=== PATIENT | female | born 1930 | race Caucasian/White ===

== ENCOUNTER 2016-12-01 06:57 | Day surgery (SDC) | payer MEDICARE, OTHER ==
[~2016-12-01] VITALS: Ht 160 cm; Wt 89.5 kg
[2016-12-01] VITALS (9 sets, daily range): BP systolic 121–170; BP diastolic 46–72; PULSE 63–77; RESP 14–17; O2SAT 93–97
[~2016-12-01 06:57] MED LIST: ACET325T51 PO; AMLO5TAB2 PO; BETA1TAB19 PO; CYAN500T53 SL; CeFAZolin 2 Gm/50 mL D5W IV Premix IV ONE; FERR325T6 PO; FOLI0.4T2 PO; LACT1CAP73 PO; LAMO200T2 PO; LEVO100T6 PO; LOPE2CAP PO; LOSA25TA21 PO; MAGN400O4 PO; METF500T4 PO; Mitomycin Inj 40 MG in Syringe 1 EACH IRRIGATION ONE; OMEP20TA86 PO; ONDA4TAB6 PO; PHEN-777 PO; PRED-508 PO; PYRI60TA PO; QUET25TA73 PO; Vancomycin Inj 1,000 MG in IV Premix 1 EACH IV ONE; cefTRIAXone 2,000 mg/D5W 50 mL IV Minibag Plus IV ONE
[2016-12-01] MEDS ORDERED: EPHEDrine/NS 5 mg/mL 5 mL Syringe ONE (06:58)
[2016-12-01] MEDS ORDERED: fentaNYL-PF 50 mCg/mL 2 mL Inj ONE (06:58)
[2016-12-01] MEDS ORDERED: Propofol 10,000 mCg/mL 20 mL Inj ONE (06:58)
[2016-12-01] MEDS: Lactated Ringer's 1,000 ML IV SCH ×2 (08:23→09:08)
[2016-12-01] MEDS ORDERED: Lactated Ringer's 1,000 ML IV SCH (09:54)
[2016-12-01] MEDS ORDERED: Lactated Ringer's 500 ML IV PRN (09:54)
--- NOTE | 2016-12-01 09:54 | PCM.HPANE ---
Patient Data Surgeon Admitting Provider: Attending Provider:Jelani Gu MD Primary Care Physician:Rosemary Keys MD Other Provider:Debi Parkingham Anesthesia Reason for Visit Bladder Tumor, Bladder Lesion Ht/WT & BMI Height (Feet): 5 Height (Inches): 2 Weight (Kilograms): 83.46 Body Mass Index 33.00 Allergies Coded Allergies: Penicillins (Verified Allergy, Severe, RASH,ITCH, 08/23/16) lisinopril (Verified Adverse Reaction, Severe, COUGH, 08/23/16) Past Anesthesia History Anesthesia History: Denies:: Abnormal Airway, Anesthesia Reactions, Difficult Intubation, Fam Anesthesia Reaction, Fam Malignant Hypertherm, Malignant Hyperthermia Diabetes History Hx Diabetes?: Yes Type of Diabetes: Type II Glycemic Control: Oral Medication MRSA MRSA: No Medications Blood Thinner: Aspirin Hypertension Medication: Yes Home Meds Incl Beta Davonte: No Active Scripts Amlodipine 5 Mg Trdrfg11 Mg PO DAILY #30 TABLET Prov:Esteban East MD 08/31/16 Prednisone (Deltasone)20 Mg Kmcuvk45 Mg PO DAILY #4 TABLET Prov:Esteban East MD 08/31/16 Losartan Potassium 25 Mg Xfwocq01 Mg PO DAILY #30 TABLET Prov:Esteban East MD 08/31/16 Reported Medications Phenazopyridine 200 Mg Ctsgou842 Mg PO TID PRN For Pain Ref 0 08/24/16 Ondansetron (Zofran)4 Mg Tablet4 Mg PO Q4H PRN For Nausea 08/24/16 Vit A/Vit C/Vit E/Zinc/Copper (Preservision Areds Tablet)1 Each Tablet1 Each PO 08/24/16 Lactobacillus Combo No.11 (Probiotic)1 Each Cap.sprink1 Each PO DAILY 08/20/16 Metformin 500 Mg Kmwqlu030 Mg PO TID Ref 0 05/05/16 Omeprazole 20 Mg Tablet.dr20 Mg PO DAILY 05/02/16 Magnesium Hydroxide (Milk of Magnesia)400 Mg/5 Ml Oral.gwuv530 Mg PO PRN 05/02/16 Cyanocobalamin (Vitamin B-12) (Vitamin B-12)500 Mcg Tab.owov195 Mcg SL DAILY 02/08/16 Loperamide 2 Mg Capsule2-4 Mg PO Q4H PRN For Diarrhea or Loose Stool 02/08/16 Acetaminophen 325 Mg Xdmoun735 Mg PO Q4H PRN For Pain Ref 0 02/08/16 Levothyroxine 100 Mcg Erzkqt952 Mcg PO DAILY For Thyroid Replacement Ref 0 02/08/16 Folic Acid 0.4 Mg Tablet0.4 Mg PO DAILY 02/08/16 Ferrous Sulfate 325 Mg Tablet.dr325 Mg PO BID 30 Days Ref 0 02/08/16 Pyridostigmine [place] 60 Mg Vvymvb82 Mg PO QIDWA 30 Days Ref 0 01/13/15 Lamotrigine 200 Mg Iteyrb810 Mg PO BID 30 Days Ref 0 01/13/15 Quetiapine Fumarate 25 Mg Nxkkhg38.5 Mg PO HS #30 TABLET Ref 0 08/15/14 Discontinued Reported Medications Nitrofurantoin Monohyd/M-Cryst (MacroBid)100 Mg Rzwqesn585 Mg PO BID Ref 0 08/24/16 Benzonatate 100 Mg Bgbdkwd207 Mg PO TID PRN For Cough 02/08/16 Discontinued Scripts Ciprofloxacin (Cipro)500 Mg Orxhsq012 Mg PO BID #8 TABLET Ref 0 Prov:Esteban East MD 08/31/16 History History of ENT Problems?: Yes HEENT History: Positive for:: Cataracts Glaucoma (hx of surgery for) Sinus Problem Denies:: Abnormal Airway Difficult Intubation Dysphagia Hearing Problem Hx of Heart Problems?: No Cardiovascular History: Positive for:: Hypertension Rheumatic Fever (HX SCARLET FEVER) Denies:: AICD Atrial Fibrillation Cardiac Surgery Chest Pain Congestive Heart Failure Edema Heart Murmur Irregular Heartbeat Pacemaker Thrombophlebitis Valvular Heart Disease Hx of Respiratory Problem?: No Respiratory History: Positive for:: Pneumonia Denies:: Asthma COPD Chest Surgery Cough Dyspnea Emphysema Hemoptysis Tuberculosis Use of C-PAP Machine Hx Neurologic Problems?: Yes Neurological History: Positive for:: Dizziness Headaches Seizures (stable seizure disorder) Denies:: Alzheimer's Disease (reports of delirium and sun downing) CVA Dementia Multiple Sclerosis Parkinson's Disease Hx of GI Problems?: Yes Gastrointestinal History: Positive for:: Diverticulitis (perforated, with sigmoid colectomy) Heartburn Hiatal Hernia Denies:: Cirrhosis Gastroesphageal Reflux Gastrointestinal Bleeding Hepatitis Rectal Bleeding Hx of Problems?: Yes Genitourinary History: Positive for:: Kidney Stones Denies:: HX of Hemodialysis Urinary Tract Infection (hx of not current) HX of Peritoneal Dialysis: No Other Pertinent History: bladder tumor current admission problem- past hx of surgery Female Hx: Denies:: Currently Endometriosis Pelvic Inflammatory Problems with Breasts? Skin History: Denies:: History Skin Disorders? Pressure Ulcers Hx Musculoskeletal Problems?: Yes Musculoskeletal History: Positive for:: Back Injury Myasthenia Gravis Osteoarthritis Denies:: Joint Replacement Musculoskeletal Trauma Hx of Psycho/Social Problems?: Yes Psycho Social History: Positive for:: Anxiety Hx Depression Denies:: Bipolar Disorder Suicide Attempt Hx Surgeries?: No (cysto, turbt, appe, cataracts, sigmoid resection, [place], thyroidectomy) Hx Any Other Health Problems?: Yes Other History: Positive for:: Cancer (bladder, thyroid) Hospitalization Thyroid Disease (thyroidectomy) Denies:: Endocrine Disease History Blood Transfusions: Denies:: Blood Transfuse Reaction Blood Transfusions Hx Diabetes: Yes Hx Alcohol Use: NoHx Substance Use: No Smoking Status: Former Smoker Have You Smoked inLast 12 mo: No Stop/Bang S-Snoring: Do You Snore Loudly: No T-Tired: feel tired, fatigued: Yes O-Obsered: Observed not breath: No P-Blood Pressure: treated: Yes B- Body Mass Index > 35 kg/m2: No A- Age over 50: Yes N- Neck Large Circumference: No G- Gender Male: No NATALEE Total Score: 3 Risk Assessment Category Category 1A: Patient has history of documented sleep apnea, and HAS NOT received any narcotic, sedative or anesthesia administration during this stay. Category 1B: Patient has history of documented sleep apnea, and HAS received any narcotic , sedative or anesthesia administration during this stay Category 2: Patient has SUSPECTED Obstructive Sleep Apnea, and HAS received any narcotic , sedative or anesthesia administration during this stay. Category 3: Patient has SUSPECTED Obstructive Sleep Apnea and HAS NOT received narcotic, sedative or anesthesia administration during this stay. Category 4: Outpatient in Procedural Areas with known sleep apnea or who screen positive for High Risk via the STOP/BANG questionnaire. Exam Exam General Appearance: Alert, Oriented X3, Cooperative, No Acute Distress HEENT/AIRWAY: MP 2, Neck Movement (FROM), Mouth Opening (3 FBMO) Lungs: Clear to Auscultation, Diminished Heart: Exam Unremarkable, Regular Rate/Rhythm, No Murmurs/Rubs/Gallops Additional Information uses wheelchair. weak from Myasthenia Gravis. H/O alzheimers dz. Plan Impression Patient chart reviewed, patient interviewed and anesthestic plan with risks, benefits, and alternatives discussed, and informed consent obtained. NPO Status: 05/04 2230 ASA Physical Status: ASA3 Severe Disease Anesthetic Plan: SAB (risks of SAB including bleeding, infection, permanent nerve damage, permanent motor weakness discussed. AQA. Consent signed.) Bene/Risks/Altern/Consents: Yes Santy Castañeda MD Dec 01, 2016 07:32
[2016-12-01] MEDS ORDERED: fentaNYL-PF 50 mCg/mL 2 mL Inj IVPUSH PRN (09:55)
[2016-12-01] MEDS ORDERED: Phenylephrine 10,000 mCg/mL Inj IVPUSH PRN (09:55)
[2016-12-01] MEDS ORDERED: Ondansetron 2 mg/mL 2 mL Inj IVPUSH PRN (09:55)
--- NOTE | 2016-12-01 10:42 | PCM.SURGPO ---
Immediate Operative Note Date of Surgery: Dec 01, 2016 Pre Operative Diagnosis Bladder tumor, bladder lesion Post Operative Diagnosis Bladder tumor, bladder lesion Procedure Cystoscopy, transurethral resection of bladder tumor (0.5-2cm), and bladder biopsy Surgeon and Soldering Inspector Surgeon: Jelani Gu MD Assistants: None Findings Cystoscopy revealed an approx. 0.5-1cm papillary bladder tumor on R lateral wall and an edematous and minimally erythematous bladder lesion on R superolateral wall. Bladder tumor and bladder lesion were resected using bipolar loop electrocautery. Complications There were no periprocedural complications identified. Surgical Specimen Removed: Yes Specimen sent to Pathology: Yes Surgical Specimen description: R lateral wall bladder tumor, R superolateral wall bladder lesion Anesthetic Administered: SAB Grafts, Implants: Other (18F Reed catheter to straight drainage) Output, Estimated Blood Loss: <5 Blood Admin during surgery: No Additional information Patient to be discharged home when stable, to return to see me in 1.5-2 weeks for post-op visit and trial of void. Jelani Gu MD Dec 01, 2016 10:42
--- NOTE | 2016-12-01 10:56 | PCM.DISURG ---
Surgical Discharge Instruction Date of Service Dec 01, 2016 Dates of Hospitalization Date of Hospital Admission Dec 01, 2016 Providers Admitting Physician: Jelani Gu MD Primary Care Physician: Rosemary Keys MD Attending Physician: Jelani Gu MD Discharge Diagnosis Discharge Diagnosis Bladder tumor, bladder lesion Post Operative diagnosis Bladder tumor, bladder lesion Diet Discharge Diet: No restrictions, Other (Drink at least 8-12 8oz. glasses (2-3 liters) of fluids per day as long as there is blood in the urine) Activity Discharge Activity-General: No driving while taking narcotic, Other (No strenuous exercise/activity or moderate or heavy lifting (> 10 lbs.) for 1 week) Dressing and Incisional Care Hygiene: May shower Follow Up Plan Follow-up Provider (F9): Jelani Gu MD Follow-up appointment: Weeks (1.5-2 weeks for post-op visit and trial of void ( early-mid AM appt.)) Call your provider for: Fever, Chills, Vomiting, Other (Pain uncontrolled by pain medications) Jelani Gu MD Dec 01, 2016 10:56
[2016-12-01] MEDS ORDERED: HYDROcodone-APAP 5-325 mg Tablet PO PRN (11:00)
--- NOTE | 2016-12-01 11:08 | PCM.ANEP1 ---
Post Anesthesia Phase 1 PACU Phase 1 Assessment Date of Service: Dec 01, 2016 Vital Signs Vital Signs Date Time Temp Pulse Resp B/P Pulse Ox O2 Delivery O2 Flow Rate FiO2 12/01/16 10:35 64 15 125/49 95 12/01/16 10:30 65 15 121/46 96 12/01/16 10:25 64 16 121/49 95 Room Air 12/01/16 10:20 36.4 63 14 122/50 95 Room Air 12/01/16 08:37 36.6 68 16 153/52 96 Room Air Anesthetic Administered: GA Level of Alertness: Awake, talking EMERSON's with Equal Strength: Yes Pain: No Nausea or Vomiting: No Oxygen Delivery: Simple Mask Lungs: Clear to Auscultation, Diminished Dermatome Level: T12 (Symphysis Pubis) Santy Castañeda MD Dec 01, 2016 11:08
--- NOTE | 2016-12-01 11:09 | PCM.ANEP2 ---
Post Anesthesia Evaluation ASA/CMS Post Anesthesia VS in Patient's Normal Range?: Yes Resp Stable; Airway Patent?: Yes CV Function & Hydration Stable: Yes Mental Status Recovered?: Yes Pain control Satisfactory?: Yes N/V Control Satisfactory?: Yes Santy Castañeda MD Dec 01, 2016 11:08
--- NOTE | 2016-12-02 14:52 | OP ---
[address] [address] OPERATIVE REPORT PATIENT: CHRISSY LANG : 1930 MR#: [id number] ADMIT: 12/01/2016 JOB ID: [id number] DATE OF SURGERY: 12/01/2016 PREOPERATIVE DIAGNOSIS(ES): Bladder tumor, bladder lesion. POSTOPERATIVE DIAGNOSIS(ES): Bladder tumor, bladder lesion. PROCEDURE: Cystoscopy, transurethral resection of bladder tumor (0.5-2 cm), and bladder biopsy. SURGEON: Jelani Gu M.D. HOSE TESTER: None. ANESTHESIA: Spinal anesthesia. ESTIMATED BLOOD LOSS: Less than 5 mL. SPECIMENS: Right lateral wall bladder tumor, right superolateral wall bladder lesion. DRAINS: An 18-Greek Reed catheter to straight drainage. COMPLICATIONS: None. CONDITION: Stable. FINDINGS: Cystoscopy revealed an approximately 0.5-1 cm papillary bladder tumor on the right lateral wall and an edematous and minimally erythematous bladder lesion on the right superolateral wall. Bladder tumor and bladder lesion were resected using bipolar loop electrocautery. INDICATIONS: The patient is an 86-year-old female with history of bladder cancer found on office cystoscopy to have bladder tumor and bladder lesion. The patient now presents for cystoscopy, transurethral resection of bladder tumor, bladder biopsy, and Mitomycin intravesical instillation. PROCEDURE: The patient was brought to the operating room and placed supine on the operating room table. The patient was given ceftriaxone and vancomycin IV antibiotics. Sequential compression device boots were placed. Spinal anesthesia was administered. The patient was brought down into the dorsal lithotomy position. The patient was prepped and draped in a standard surgical fashion. A 26-Greek continuous flow resectoscope was placed into the urethra without difficulty. Cystoscopy revealed normal urethra, bilateral ureteral orifices in normal position, mildly trabeculated bladder, no bladder calculi, an approximately 0.5-1 cm papillary bladder tumor on the right lateral wall, and an edematous and minimally erythematous bladder lesion on the right superolateral wall. The bladder tumor and bladder lesion were resected in their entirety using Thunderbeat bipolar loop electrocautery and sent to pathology for permanent specimen. The base of the bladder tumor resected area and bladder biopsied area including normal surrounding bladder mucosa were fulgurated using bipolar loop electrocautery. Excellent hemostasis was achieved. Bilateral ureteral orifices were seen to be intact and well-preserved at the end of the case. The continuous-flow resectoscope was removed from the patient. An 18-Greek Reed catheter was placed through the urethra and into the bladder without difficulty. Reed catheter balloon was inflated with 10 mL sterile water. Reed catheter was placed to straight drainage. Skin was cleaned and dried. The patient was placed in the supine position. The patient was transferred to the recovery room in stable condition. The patient tolerated the procedure well. Plan is for the patient to be discharged home when stable and to return to see me in the office in 1-1/2 to 2 weeks for postoperative visit and trial of void. CHUY
--- NOTE | 2016-12-06 10:46 | PATH ---
SURGICAL PATHOLOGY Attending Physician:Jelani Gu MD CASE STATUS: Signed Out PATIENT NAME: CHRISSY LANG PID: [id number] : 1930 DATE COLLECTED:12/01/2016 17:23 SPECIMEN: 1: Bladder, Biopsy 2: Bladder, Biopsy CLINICAL HISTORY: BLADDER LESION, BLADDER TUMOR 1). RIGHT LATERAL WALL BLADDER TUMOR 2). RIGHT SUPERIOR LATERAL WALL BLADDER LESION FINAL DIAGNOSIS: 1. Right Lateral Bladder Wall Tumor, Biopsy: Low-grade transitional cell carcinoma. Tumor does not invade the lamina propria or muscularis propria. 2. Right Superior Lateral Wall, Bladder, Biopsy: Mild chronic cystitis. Submucosal benign adipose tissue. No evidence of malignancy or dysplasia. ICD10 C67 NOTE: Dr. Tracy has reviewed the case and concurs with the diagnosis. GROSS DESCRIPTION: The specimen is received in two formalin filled containers labeled with the patient's name. 1). The specimen is sublabeled "right lateral wall bladder tumor" and consists of a 0.4 x 0.3 x 0.3 CM pink-burks portion of tissue. The specimen is entirely submitted in cassette 1A. 2). The specimen is sublabeled "right superior lateral wall bladder lesion" and consists of a 0.4 x 0.3 x 0.3 CM portion of tissue which is entirely submitted in cassette 2A. 12/01/2016 [facility] ICD-9 CODES: CPT CODES: 1: 48332 2: 88287 Electronically Signed Out Sandeep Ramires MD [facility] [address], [place] [address] Technical component performed at [facility], [facility] [address], [place], [address]
== END 2016-12-01 23:59 | disposition home or self-care (01) ==
LOC: SAS 06:57
PROVIDERS: ATTEND Urology
DX: C67.2 Malignant neoplasm of lateral wall of bladder (principal); N30.20 Other chronic cystitis without hematuria; R39.15 Urgency of urination; R35.1 Nocturia; E11.9 Type 2 diabetes mellitus without complications; E78.5 Hyperlipidemia, unspecified; I10 Essential (primary) hypertension; E03.9 Hypothyroidism, unspecified; G40.109 Localization-related (focal) (partial) symptomatic epilepsy and epileptic syndromes with simple partial seizures, not intractable, without status epilepticus; E66.9 Obesity, unspecified; Z87.891 Personal history of nicotine dependence; Z87.440 Personal history of urinary (tract) infections; Z79.84 Long term (current) use of oral hypoglycemic drugs; Z79.52 Long term (current) use of systemic steroids
CPT/HCPCS: 52234; 88305; J0696; J3010; J3370; J7120

== ENCOUNTER 2016-12-03 16:23 | Emergency (ER) | payer MEDICARE, OTHER ==
[~2016-12-03] VITALS: Ht 160 cm; Wt 88.6 kg
[~2016-12-03 16:23] MED LIST changes: -CeFAZolin 2 Gm/50 mL D5W IV Premix IV ONE; -Mitomycin Inj 40 MG in Syringe 1 EACH IRRIGATION ONE; -Vancomycin Inj 1,000 MG in IV Premix 1 EACH IV ONE; -cefTRIAXone 2,000 mg/D5W 50 mL IV Minibag Plus IV ONE
[2016-12-03 16:30] VITALS: BP 131/64; PULSE 77; RESP 16; O2SAT 97
--- NOTE | 2016-12-03 16:49 | ED.REPORT ---
HPI-General Illness Date of Service Dec 03, 2016 ED Provider: Marcell Newman MD An 86 year old female with a history of hypertension, diabetes, myasthenia gravis, bladder cancer, and Sterling's disease presents to the ED complaining of a nonfunctioning Reed. Urine procedure for bladder cancer 2 days ago and had a Reed placed. That Reed became nonfunctional and was flushed yesterday. It became nonfunctional again. Shortly before presentation she was seen at the urgent care where they placed a new Reed however they were concerned it did not seem to be producing enough. She is referred to the emergency department for labs and further evaluation. She has no complaints of pain, fever, difficulty breathing, vomiting. She does not feel that her bladder is distended. Nursing Notes Nursing Notes Reviewed: Yes Allergies: Coded Allergies: Penicillins (Verified Allergy, Severe, RASH,ITCH, 12/03/16) lisinopril (Verified Adverse Reaction, Severe, COUGH, 12/03/16) Scheduled Amlodipine (Amlodipine) 5 Mg Tablet 10 MG PO DAILY Cyanocobalamin (Vitamin B-12) (Vitamin B-12) 500 Mcg Tab.subl 500 MCG SL DAILY Ferrous Sulfate (Ferrous Sulfate) 325 Mg Tablet.dr 325 MG PO BID Folic Acid (Folic Acid) 0.4 Mg Tablet 0.4 MG PO DAILY Lactobacillus Combo No.11 (Probiotic) 1 Each Cap.sprink 1 EACH PO DAILY Lamotrigine (Lamotrigine) 200 Mg Tablet 200 MG PO BID Levothyroxine (Levothyroxine) 100 Mcg Tablet 100 MCG PO DAILY Losartan Potassium (Losartan Potassium) 25 Mg Tablet 50 MG PO DAILY Magnesium Hydroxide (Milk of Magnesia) 400 Mg/5 Ml Oral.susp 400 MG PO PRN Metformin (Metformin) 500 Mg Tablet 500 MG PO TID Omeprazole (Omeprazole) 20 Mg Tablet.dr 20 MG PO DAILY Prednisone (Deltasone) 20 Mg Tablet 20 MG PO DAILY Pyridostigmine [place] (Pyridostigmine [place]) 60 Mg Tablet 60 MG PO QIDWA Quetiapine Fumarate (Quetiapine Fumarate) 25 Mg Tablet 12.5 MG PO HS Scheduled PRN Acetaminophen (Acetaminophen) 325 Mg Tablet 650 MG PO Q4H PRN PRN For Pain Loperamide (Loperamide) 2 Mg Capsule 2-4 MG PO Q4H PRN PRN For Diarrhea or Loose Stool Ondansetron (Zofran) 4 Mg Tablet 4 MG PO Q4H PRN PRN For Nausea Phenazopyridine (Phenazopyridine) 200 Mg Tablet 200 MG PO TID PRN PRN For Pain Miscellaneous Medications Vit A/Vit C/Vit E/Zinc/Copper (Preservision Areds Tablet) 1 Each Tablet 1 EACH PO General Time Seen by MD: 16:47 Chief Complaint Other (Reed catheter check) Past Medical History Past Medical History 1. bladder cancer s/p tumor removal 2. Morbid obesity 3. History palpitations 4. Restless legs syndrome 5. Myasthenia gravis 6. Diverticulitis with perforation 7. Macular degeneration 8. 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 Diabetes mellitus 12. GERD 13. Hypertension 14. Thyroid disease Past Surgical History 1. Cystoscopy, with transurethral resection of bladder tumors (greater than 5 cm) and Mitomycin intravesical instillation 2. thyroidectomy 3. sigmoid resection due to diverticulitis 4. Appendectomy Review of Systems General: Denies fever, chills, malaise. HEENT: Denies congestion, headache, sore throat. Respiratory: Denies dyspnea, cough, shortness of breath, wheezing. Cardiovascular: Denies chest pain, palpitations. Gastrointestinal: Denies vomiting, abdominal pain. Admits diarrhea Otherwise as noted in HPI. Physical Exam General: Well appearing, well developed, well nourished, no acute distress. Head: Atraumatic, normocephalic. Eyes: No scleral icterus or injection. No discharge. Vision grossly intact. ENT: Voice clear, hearing grossly intact. Respiratory: Regular rate and rhythm. Breath sounds present, clear to auscultation and equal bilaterally. No respiratory distress. No increased work of breathing, speaks in complete sentences. Cardiovascular: Regular rate and rhythm, without murmur, gallop or rub. No pedal edema. Gastrointestinal: Obese abdomen non-tender without guarding or rebound. No masses detected. No distended bladder palpated. Bowel sounds normoactive. : Reed bag has approximately 100 mL of straw-colored urine in it. Skin: Warm and dry. Neurological: Grossly nonfocal. Psychological: Alert and oriented. Speech appropriate, linear and logical. Behavior appropriate. Vital Signs Vital Signs Date Time Temp Pulse Resp B/P Pulse Ox O2 Delivery O2 Flow Rate FiO2 4/1/17 18:49 80 16 147/50 96 Room Air 12/03/16 18:48 80 16 147/50 96 Room Air 12/03/16 16:30 36.4 77 16 131/64 97 Room Air Initial VS: Reviewed, Vital signs normal Interpretation & Diagnostics Lab Results Interpretation Result Diagram: 12/03/16 1705 12/03/16 1705 Test 12/03/16 16:40 12/03/16 17:05 Urine Color Yellow (YELLOW) Urine Appearance Clear (CLEAR,HAZY) Urine pH 5.5 (5.0-8.0) Urine Specific [place] 1.030 (1.003-1.035) Urine Protein 100mg/dL (NEG,TRACE) Urine Glucose (UA) Negativemg/dL (NEGATIVE) Urine Ketones Negativemg/dL (NEGATIVE) Urine Occult Blood Large (NEGATIVE) Urine Nitrite Negative (NEGATIVE) Urine Bilirubin Negative (NEGATIVE) Urine Urobilinogen Normalmg/dL (NORMAL) Urine Leukocyte Esterase Trace (NEGATIVE) Urine RBC 11-50/hpf (0-2) Urine WBC 0-5/hpf (0-5) Urine Epithelial Cells None/hpf (NONE-MOD) Urine Crystals None seen (NONE SEEN) Urine Bacteria Moderate/hpf (NONE-FEW) Urine Hyaline Casts None/lpf (NONE) Urine Granular Casts None seen (NONE SEEN) Urine Waxy Casts None seen (NONE SEEN) Urine Red Blood Cell Casts None seen (NONE SEEN) Urine White Blood Cell Casts None seen (NONE SEEN) Urine Mucus None seen (None Seen) Urine Trichomonas None seen (NONE SEEN) Urine Yeast None (NONE SEEN) Urinalysis Comment None Urine Culture Reflexed Indicated Hold Urine Received (Received) White Blood Count 12.8th/mm3 (3.8-10.1) Red Blood Count 3.06mil/mm3 (3.90-5.20) Hemoglobin 9.4g/dL (12.0-15.6) Hematocrit 30.7% (35.0-46.0) Mean Corpuscular Volume 100.3fL (81-100) Mean Corpuscular Hemoglobin 30.7pg (27.0-35.0) Mean Corpuscular Hemoglobin Concent 30.6% (32.0-37.0) Red Cell Distribution Width 14.5% (12.3-15.4) Platelet Count 324bil/L (150-400) Neutrophils (%) (Auto) 88.7% (40-74) Lymphocytes (%) (Auto) 5.8% (14-46) Monocytes (%) (Auto) 3.7% (4-12) Eosinophils (%) (Auto) 0% (0-5) Basophils (%) (Auto) 0.2% (0-3) Sodium Level 142mEq/L (134-144) Potassium Level 5.7mEq/L (3.5-5.2) Chloride Level 103mEq/L (97-108) Carbon Dioxide Level 22mmol/L (18-29) Blood Urea Nitrogen 18mg/dL (8-27) Creatinine 1.25mg/dL (0.57-1.00) Estimat Glomerular Filtration Rate 58mL/min (>59) Glucose Level 168mg/dL (60-99) Calcium Level 9.3mg/dL (8.5-10.1) Hold Hoffman Top Tube Received (Received) Re-Eval/Medical Decision Med Decision/Clinical Course 86-year-old woman seen for concern about a nonfunctioning Reed catheter. In the department her Reed appears to be functioning properly. CMP reveals mild hyperkalemia at 5.7. Her last measurement was 2 weeks ago at 5.2. This is not thought to be clinically relevant. Creatinine is 1.25, BUN is 18 and her estimated GFR is 58, indicating sufficient renal function. Glucose is 168 CBC reveals slight anemia and slight leukocytosis at 12.8 with a left shift. This is thought to be secondary to recent surgery. Urinalysis reveals blood and trace leukocyte esterase as well as moderate bacteria. This appears consistent with recent surgery rather than acute UTI. Discharge & Departure Primary Impression: Reed catheter in place Additional Impression: Problem with Reed catheter Disposition: Home Discharge Condition All VS Reviewed: Yes Condition: Stable Additional Instructions: Evaluation of a Reed catheter in the emergency department. It appears that the Reed that was placed at the urgent care is functioning as intended. Blood work is reassuring that your kidneys are functioning fairly well. We do note that you have a modestly elevated white blood cell count. This could be caused by infection, but you have no pain or fever. There is no indication of infection in your urine. We think this elevated white count is most likely due to your recent surgery. I believe you are stable and safe to be discharged to home. Follow-up with your care team as planned. Return to the emergency department for any new or worsening symptoms including increasing pain, urinary retention, fever, confusion. Referrals: Rosemary Keys MD EDSupervising Provider for APC: Marcell Newman MD Attending Statement I saw this patient in conjunction with Javier Vilchis PA-C. He has been sent for culture though the patient is without UTI symptoms or fever and urinalysis findings likely reflect expected changes in setting of indwelling Reed catheter. The catheter is now draining well and there is no evidence of significant kidney injury. Patient to drink lots of fluids and follow closely with her primary care physician/urologist. Follow precautions were reviewed in detail prior to discharge. copies to: Rosemary Keys MD, Beck O MD Dec 03, 2016 16:49 KALIE RUIZ Dec 03, 2016 17:07 Javier Vilchis PA-C Dec 03, 2016 18:19
[2016-12-03 17:24] LABS: BASOPHILS % (AUTO) 0.2 % (0-3); EOSINOPHILS % (AUTO) 0 % (0-5); MONOCYTES % (AUTO) 3.7 % (4-12); Mean Corpuscular Hemoglobin 30.7 pg (27.0-35.0); Mean Corpuscular Volume 100.3 fL (81-100); NEUTROPHILS % (AUTO) 88.7 % (40-74); Platelet Count 324 bil/L (150-400)
[2016-12-03 17:25] LABS: APPEARANCE,URINE CLEAR (CLEAR,HAZY); COLOR,URINE YELLOW (YELLOW); OCCULT BLOOD,URINE LARGE (NEGATIVE); PH,URINE 5.5 (5.0-8.0); UROBILINOGEN,URINE NORMAL (NORMAL)
[2016-12-03 18:48] VITALS: BP 147/50; PULSE 80; RESP 16; O2SAT 96
[2016-12-03 18:49] VITALS: BP 147/50; PULSE 80; RESP 16; O2SAT 96
== END 2016-12-03 18:49 | disposition home or self-care (01) ==
LOC: SED 16:23
DX: Z46.6 Encounter for fitting and adjustment of urinary device (principal); E11.9 Type 2 diabetes mellitus without complications; I10 Essential (primary) hypertension; Z79.84 Long term (current) use of oral hypoglycemic drugs; Z85.51 Personal history of malignant neoplasm of bladder; Z88.0 Allergy status to penicillin; Z88.8 Allergy status to other drugs, medicaments and biological substances

== ENCOUNTER 2016-12-10 20:49 | Emergency (ER) | payer MEDICARE, OTHER ==
[~2016-12-10] VITALS: Ht 160 cm; Wt 88.6 kg
[2016-12-10 21:03] VITALS: BP 138/64; PULSE 75; RESP 18; O2SAT 97
--- NOTE | 2016-12-10 22:25 | ED.REPORT ---
HPI- Female Date of Service Dec 10, 2016 ED Provider: Tyra Mullen MD Pt is an 86 y.o. female with a hx of bladder cancer, DM, and HTN who presents to the ED c/o hematuria onset today. Pt had recent bladder surgery (performed by Dr. Gu) secondary to her cancer and has had a Reed in place since. Today her niece noticed that there was blood present in the bag. Pt denies associated pain or change in output. She does report vaginal itching that has since resolved. Pt is not on blood thinners. Nursing Notes Stated Complaint: CATHETER/ BLOOD IN BAG Chief Complaint: Female Abdominal Pain Nursing Notes Reviewed: Yes Allergies: Coded Allergies: Penicillins (Verified Allergy, Severe, RASH,ITCH, 12/10/16) lisinopril (Verified Adverse Reaction, Severe, COUGH, 12/10/16) Scheduled Amlodipine (Amlodipine) 5 Mg Tablet 10 MG PO DAILY Cephalexin (Keflex) 500 Mg Capsule 500 MG PO QID Cyanocobalamin (Vitamin B-12) (Vitamin B-12) 500 Mcg Tab.subl 500 MCG SL DAILY Ferrous Sulfate (Ferrous Sulfate) 325 Mg Tablet.dr 325 MG PO BID Folic Acid (Folic Acid) 0.4 Mg Tablet 0.4 MG PO DAILY Lactobacillus Combo No.11 (Probiotic) 1 Each Cap.sprink 1 EACH PO DAILY Lamotrigine (Lamotrigine) 200 Mg Tablet 200 MG PO BID Levothyroxine (Levothyroxine) 100 Mcg Tablet 100 MCG PO DAILY Losartan Potassium (Losartan Potassium) 25 Mg Tablet 50 MG PO DAILY Magnesium Hydroxide (Milk of Magnesia) 400 Mg/5 Ml Oral.susp 400 MG PO PRN Metformin (Metformin) 500 Mg Tablet 500 MG PO TID Omeprazole (Omeprazole) 20 Mg Tablet.dr 20 MG PO DAILY Prednisone (Deltasone) 20 Mg Tablet 20 MG PO DAILY Pyridostigmine [place] (Pyridostigmine [place]) 60 Mg Tablet 60 MG PO QIDWA Quetiapine Fumarate (Quetiapine Fumarate) 25 Mg Tablet 12.5 MG PO HS Scheduled PRN Acetaminophen (Acetaminophen) 325 Mg Tablet 650 MG PO Q4H PRN PRN For Pain Loperamide (Loperamide) 2 Mg Capsule 2-4 MG PO Q4H PRN PRN For Diarrhea or Loose Stool Ondansetron (Zofran) 4 Mg Tablet 4 MG PO Q4H PRN PRN For Nausea Phenazopyridine (Phenazopyridine) 200 Mg Tablet 200 MG PO TID PRN PRN For Pain Miscellaneous Medications Vit A/Vit C/Vit E/Zinc/Copper (Preservision Areds Tablet) 1 Each Tablet 1 EACH PO General Time Seen by MD: 22:25 Chief Complaint Blood in urine Hx Obtained From: Patient Arrived By: Walk-in Sudden in Onset?: Yes Onset Occurred: 9 - 12 hours ago Symptom Duration: Since onset Severity: Current: No pain currently Severity: Maximum: No pain Past Medical History Past Medical History Notes: Neurologist: Dr. Miner Past Medical History 1. bladder cancer s/p tumor removal 2. Morbid obesity 3. History palpitations 4. Restless legs syndrome 5. Myasthenia gravis 6. Diverticulitis with perforation 7. Macular degeneration 8. 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 Diabetes mellitus 12. GERD 13. Hypertension 14. Thyroid disease Reports: Cancer, Diabetes mellitus, GERD, Hypertension Reports: Thyroid disease Past Surgical History 1. Cystoscopy, with transurethral resection of bladder tumors (greater than 5 cm) and Mitomycin intravesical instillation 2. thyroidectomy 3. sigmoid resection due to diverticulitis 4. Appendectomy Reports: Appendectomy Smoking History Former Smoker Social History Lives at the [facility] Alcohol Use: "Social" Drug Use: Denies drug use Other Social History: Good social support, Local resident Ambulatory Status Walker Review of Systems GI: Denies: Abdominal pain Female: Reports: Hematuria, Denies: Dysuria, Flank pain, Pelvic pain, Urinary frequency, Urinary urgency , Urination decreased, Urination increased Skin: Reports Itching (Vaginal) Complete sys rev & neg: except as marked. Physical Exam Initial Vital Signs Vital Signs (First) Date Time Temp Pulse Resp B/P Pulse Ox O2 Delivery O2 Flow Rate FiO2 12/10/16 21:03 36.4 75 18 138/64 97 Room Air Initial VS: Reviewed Head / Eyes: Atraumatic, Normocephalic Extremities: Vascular intact, Neuro intact Skin: Warm, Dry, No cyanosis Neurologic: Alert, Oriented, Nonfocal Psychiatric: Mood/affect normal, Behavior normal, Normal thought content Female Genitourinary: Exam deferred General/Constitutional: Awake, Alert, No acute distress, Well appearing, Well developed, Well hydrated, Well nourished, Not toxic appearing Respiratory / Chest: Atraumatic, Breath sounds NL, Breath sounds = bilat, No respiratory distress Cardiovascular: Heart rate NL, Regular rhythm, Heart sounds NL Abdomen: Atraumatic, Soft, Non-tender, No guarding, No rebound, No distention Interpretation & Diagnostics Lab Results Interpretation Test 12/10/16 22:30 Urine Color Red (YELLOW) Urine Appearance Cloudy (CLEAR,HAZY) Urine pH 5.5 (5.0-8.0) Urine Specific [place] 1.020 (1.003-1.035) Urine Protein 100mg/dL (NEG,TRACE) Urine Glucose (UA) Negativemg/dL (NEGATIVE) Urine Ketones Tracemg/dL (NEGATIVE) Urine Occult Blood Large (NEGATIVE) Urine Nitrite Positive (NEGATIVE) Urine Bilirubin Negative (NEGATIVE) Urine Urobilinogen Normalmg/dL (NORMAL) Urine Leukocyte Esterase Moderate (NEGATIVE) Urine RBC >50/hpf (0-2) Urine WBC 6-10/hpf (0-5) Urine Epithelial Cells Occasional/hpf (NONE-MOD) Urine Crystals None seen (NONE SEEN) Urine Bacteria None/hpf (NONE-FEW) Urine Hyaline Casts None/lpf (NONE) Urine Granular Casts None seen (NONE SEEN) Urine Waxy Casts None seen (NONE SEEN) Urine Red Blood Cell Casts None seen (NONE SEEN) Urine White Blood Cell Casts None seen (NONE SEEN) Urine Mucus None seen (None Seen) Urine Trichomonas None seen (NONE SEEN) Urine Yeast None (NONE SEEN) Urine Culture Reflexed Indicated Re-Eval/Medical Decision Med Decision/Clinical Course 86-year-old female with past medical history of myasthenia gravis, hypertension , status post recent resection of bladder tumor on December 01 here with blood in her Reed. Differential diagnosis includes but is not limited to hematuria versus urinary tract infection versus postoperative bleeding versus urinary retention. Patient shows no signs of urinary retention. I spoke with WENDY Marie who recommended very minimal irrigation and follow-up in clinic. Patient does have evidence of UTI. I have given her first dose of Keflex in the emergency department, discharged her with same, and advised her to follow up in clinic. She is aware and amenable to discharge at this time. There is no evidence of urinary retention, and there were no clots on irrigation. Source of Hx: Old records Re-Evaluation/Progress : Time of Eval: 23:42 Re-Evaluation/Progress Note: Pt rechecked. Discussed plan for discharge, pt understands and agrees with plan. Consultation : Referral / Consult Name: Matilde Turpin PA-C Consulted With: Urology Call Returned at: 23:14 Note: Consulted with Matilde Turpin PA-C, on-call for Dr. Gu. She recommend pt follow-up in clinic. Counseled Regarding: Diagnosis, Lab results, Need for follow-up, When/why to return to ED Discharge & Departure Impression: Primary Impression: UTI (urinary tract infection) Additional Impression: Hematuria Disposition: Home Discharge Condition All VS Reviewed: Yes Condition: No Change Patient Instructions: Acute Hematuria (ED), Urinary Tract Infection in Women ( ED) Additional Instructions: Thank you for entrusting us with your care today. You were seen here today for a urinary tract infection and blood in your urine. Your catheter was irrigated while you were in the Emergency Department. I will prescribe you a 7 day course of Keflex, this is safe for you to take. Keep your appointment with your Urologist, Dr. Gu, on Monday. Seek care if you have decreased urinary output, pain with urination, fever, or any new or worsening symptoms. Referrals: Rosemary Keys MD (PCP) Jelani Gu MD Attestation Portions of this note were transcribed by Jonh Burns. I, Dr. Mullen personally performed the history, physical exam and medical decision-making; I reviewed and confirmed the accuracy of the information in the transcribed note. Signed by : Reuben Bradford, 12/10/16 and [id number]. copies to: Jelani Gu MD; Rosemary Keys MD, Rebecca A MD Dec 10, 2016 22:25 JONH BURNS Dec 10, 2016 22:41
[2016-12-10 23:03] LABS: APPEARANCE,URINE CLOUDY (CLEAR,HAZY); COLOR,URINE RED (YELLOW); OCCULT BLOOD,URINE LARGE (NEGATIVE); PH,URINE 5.5 (5.0-8.0); UROBILINOGEN,URINE NORMAL (NORMAL)
[2016-12-10] MEDS ORDERED: CEPH-512 PO (23:47)
== END 2016-12-11 00:14 | disposition home or self-care (01) ==
LOC: SED 20:49
DX: N39.0 Urinary tract infection, site not specified (principal); R31.9 Hematuria, unspecified; I10 Essential (primary) hypertension; E11.9 Type 2 diabetes mellitus without complications; Z87.891 Personal history of nicotine dependence; Z79.84 Long term (current) use of oral hypoglycemic drugs; Z88.0 Allergy status to penicillin; Z88.8 Allergy status to other drugs, medicaments and biological substances

== ENCOUNTER 2017-04-17 12:00 | Emergency (ER) | payer MEDICARE, OTHER ==
[~2017-04-17] VITALS: Ht 160 cm; Wt 88.6 kg
[~2017-04-17 12:00] MED LIST changes: +CEPH-512 PO
[2017-04-17 12:03] VITALS: BP 159/52; PULSE 75; RESP 16; O2SAT 97
--- NOTE | 2017-04-17 12:36 | DRSVH ---
PROCEDURE: X-RAY CHEST ONE VIEW, PORTABLE ([id number]) INDICATIONS: Chest pain TECHNIQUE: One view of the chest was acquired. COMPARISON: [facility], CR, XR CHEST 2VW, 11/16/2016, 14:55. [facility], CR, XR CHEST 1VW (PORTABLE), 08/20/2016, 0:11. FINDINGS: Surgical changes and devices: None. Lungs and pleura: No pleural effusions or pneumothorax. Lungs are clear. Mediastinum: Mediastinal contours appear normal. Heart size is normal. Bones and chest wall: No suspicious bony lesions. There is severe degeneration of the glenohumeral joints redemonstrated. Overlying soft tissues appear unremarkable. IMPRESSION: 1. No acute cardiopulmonary disease. Dictated by: Jose Manuel Mendes M.D. on 04/17/2017 at 12:33 Approved by: Jose Manuel Mendes M.D. on 04/17/2017 at 12:34
--- NOTE | 2017-04-17 12:39 | ED.REPORT ---
HPI-Chest Pain 40 and Over Date of Service Apr 17, 2017 ED Provider: Alessandro Aquino MD Patient is an 87 year old female with a history of hypertension, diabetes and bladder cancer who presents to the ED via EMS complaining of intermittent right sided chest pain since last night. Associated symptoms include pain that radiates into the right side of her neck and abdomen. She states that she has an episode that starts in her abdomen that only lasts a few seconds and then it moves up to her chest, resolves and then happens in her neck. Patient denies shortness of breath, nausea, fever, chills, vomiting, cough or other symptoms. Nursing Notes Stated Complaint: CHEST PAIN Chief Complaint: Chest Pain Nursing Notes Reviewed: Yes Allergies: Coded Allergies: Penicillins (Verified Allergy, Severe, RASH,ITCH, 12/10/16) lisinopril (Verified Adverse Reaction, Severe, COUGH, 12/10/16) Scheduled Amlodipine (Amlodipine) 5 Mg Tablet 10 MG PO DAILY Clindamycin (Clindamycin) 300 Mg Capsule 300 MG PO Q8hrs Cyanocobalamin (Vitamin B-12) (Vitamin B-12) 500 Mcg Tab.subl 500 MCG SL DAILY Ferrous Sulfate (Ferrous Sulfate) 325 Mg Tablet.dr 325 MG PO BID Folic Acid (Folic Acid) 0.4 Mg Tablet 0.4 MG PO DAILY Lactobacillus Combo No.11 (Probiotic) 1 Each Cap.sprink 1 EACH PO DAILY Lamotrigine (Lamotrigine) 200 Mg Tablet 200 MG PO BID Levothyroxine (Levothyroxine) 100 Mcg Tablet 100 MCG PO DAILY Losartan Potassium (Losartan Potassium) 25 Mg Tablet 25 MG PO DAILY Metformin (Metformin) 500 Mg Tablet 500 MG PO TID Omeprazole (Omeprazole) 20 Mg Tablet.dr 20 MG PO DAILY Prednisone (Deltasone) 20 Mg Tablet 20 MG PO DAILY Pyridostigmine [place] (Pyridostigmine [place]) 60 Mg Tablet 60 MG PO QIDWA Quetiapine Fumarate (Quetiapine Fumarate) 25 Mg Tablet 12.5 MG PO HS Vit A/Vit C/Vit E/Zinc/Copper (Preservision Areds Tablet) 1 Each Tablet 1 EACH PO DAILY Scheduled PRN Acetaminophen (Acetaminophen) 325 Mg Tablet 650 MG PO Q4H PRN PRN For Pain Benzonatate (Benzonatate) 100 Mg Capsule 100 MG PO TID PRN PRN For Cough Loperamide (Loperamide) 2 Mg Capsule 2-4 MG PO Q4H PRN PRN For Diarrhea or Loose Stool Ondansetron (Zofran) 4 Mg Tablet 4 MG PO Q4H PRN PRN For Nausea Phenazopyridine (Phenazopyridine) 200 Mg Tablet 200 MG PO TID PRN PRN For Pain Ropinirole (Ropinirole) 0.5 Mg Tablet 0.5 MG PO 1-3 hours before bed PRN PRN For Restlessness General Time Seen by MD: 12:38 Chief Complaint Chest pain Hx Obtained From: Patient Arrived By: Ambulance Sudden in Onset?: Yes Onset Occurred: 1 day ago Symptom Duration: Intermittent Location: : Chest right Quality: Painful Radiation: : Abdomen Migration/Movement: Reports: Chest to abdomen Severity: Current: Moderate Recent Healthcare: Recent doctor visit Similar Sx Previous: No Past Medical History Past Medical History Notes: Neurologist: Dr. Miner Past Medical History 1. bladder cancer s/p tumor removal 2. Morbid obesity 3. History palpitations 4. Restless legs syndrome 5. Myasthenia gravis 6. Diverticulitis with perforation 7. Macular degeneration 8. 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 Diabetes mellitus 12. GERD 13. Hypertension 14. Thyroid disease Reports: Cancer, Diabetes mellitus, GERD, Hypertension Reports: Thyroid disease Past Surgical History 1. Cystoscopy, with transurethral resection of bladder tumors (greater than 5 cm) and Mitomycin intravesical instillation 2. thyroidectomy 3. sigmoid resection due to diverticulitis 4. Appendectomy Reports: Appendectomy Smoking History Former Smoker Social History Lives at the [facility] Alcohol Use: "Social" Drug Use: Denies drug use Other Social History: Good social support, Local resident Ambulatory Status Walker Review of Systems Constitutional: Denies: Chills, Fever Respiratory: Denies: Non-productive cough, Shortness of breath Cardiovascular: Reports: Chest pain GI: Reports: Abdominal pain, Denies: Nausea, Vomiting Musculoskeletal: Reports: Neck pain Skin: Denies Itching, Denies Rash Neurologic: Denies: Numbness, Problem walking, Weakness Complete sys rev & neg: except as marked. Physical Exam Initial Vital Signs Vital Signs (First) Date Time Temp Pulse Resp B/P Pulse Ox O2 Delivery O2 Flow Rate FiO2 04/17/17 12:03 36.6 75 16 159/52 97 Room Air Initial VS: Reviewed General/Constitutional: Awake, Alert Respiratory / Chest: Atraumatic, Breath sounds NL, Breath sounds = bilat, No respiratory distress Cardiovascular: Heart rate NL, Regular rhythm, Heart sounds NL Abdomen: Atraumatic, Soft, Non-tender Neck: Atraumatic, Supple 3+ edema bilateral lower extremities Skin: Atraumatic, Color NL, No rash, Warm, Dry Neurologic: Oriented X3, Speech NL Psychiatric: Affect NL, Mood NL Head / Eyes: Atraumatic, Normocephalic, PERRL, EOMI Upper Extremity / MS: Atraumatic, Full range of motion Interpretation & Diagnostics Lab Results Interpretation Result Diagram: 04/17/17 1315 04/17/17 1315 Test 04/17/17 13:15 04/17/17 13:18 White Blood Count 15.6th/mm3 (3.8-10.1) Red Blood Count 3.61mil/mm3 (3.90-5.20) Hemoglobin 10.7g/dL (12.0-15.6) Hematocrit 34.7% (35.0-46.0) Mean Corpuscular Volume 96.1fL (81-100) Mean Corpuscular Hemoglobin 29.6pg (27.0-35.0) Mean Corpuscular Hemoglobin Concent 30.8% (32.0-37.0) Red Cell Distribution Width 13.8% (12.3-15.4) Platelet Count 327bil/L (150-400) Neutrophils (%) (Auto) 92.9% (40-74) Lymphocytes (%) (Auto) 2.8% (14-46) Monocytes (%) (Auto) 1.9% (4-12) Eosinophils (%) (Auto) 0.1% (0-5) Basophils (%) (Auto) 0.3% (0-3) Sodium Level 140mEq/L (134-144) Potassium Level 5.1mEq/L (3.5-5.2) Chloride Level 105mEq/L (97-108) Carbon Dioxide Level 20mmol/L (18-29) Blood Urea Nitrogen 20mg/dL (8-27) Creatinine 0.94mg/dL (0.57-1.00) Estimat Glomerular Filtration Rate 81mL/min (>59) Glucose Level 161mg/dL (60-99) Calcium Level 9.3mg/dL (8.5-10.1) Magnesium Level 2.0mg/dL (1.6-2.6) Total Bilirubin 0.2mg/dL (0.0-1.2) Aspartate Amino Transf (AST/SGOT) 12U/L (0-50) Alanine Aminotransferase (ALT/SGPT) 8U/L (0-32) Alkaline Phosphatase 55U/L (25-165) Troponin T < 0.010ug/L (0.0-0.011) Total Protein 7.3g/dL (6.4-8.4) Albumin 4.4g/dL (3.4-5.0) Hold Hoffman Top Tube Received (Received) ECG Interpretation Time: 12:10 Interpreted by: ED physician Normal ECG Interpretation: Normal rate (77), Normal sinus rhythm X-Ray Chest Interpretation Chest Xray Interpretation: IMPRESSION: 1. No acute cardiopulmonary disease. Dictated by: Jose Manuel Mendes M.D. on 04/17/2017 at 12:33 Approved by: Jose Manuel Mendes M.D. on 04/17/2017 at 12:34 View: Portable, 1 view Interpretation / Wet Read by: Interpret - Radiologist Re-Eval/Medical Decision Counseled Regarding: Diagnosis, Lab results, Need for follow-up, When/why to return to ED Discharge & Departure Primary Impression: Chest pain Chest pain type: unspecified Qualified Code: R07.9 - Chest pain, unspecified Discharge Condition All VS Reviewed: Yes Condition: Stable Patient Instructions: Chest Pain (ED) Additional Instructions: No dangerous cause for your chest pain is discovered today. I recommend follow- up at the clinic in the coming days for further evaluation if the pain persists. Your white blood cell count was somewhat elevated today as it was back in December when it was last checked. I recommend that you discuss this with your primary care doctor as well. Referrals: Rosemary Keys MD (PCP) Sunita[place] Attestation Portions of this note were transcribed by Wen Kilgore. I, Dr. Aquino personally performed the history, physical exam and medical decision-making; I reviewed and confirmed the accuracy of the information in the transcribed note. Signed by: Reuben Chiang, 04/17/17 copies to: Rosemary Keys MD, Kirk H MD Apr 17, 2017 12:39 Dolores Kilgore Apr 17, 2017 12:41
[2017-04-17] MEDS ORDERED: CLIN-78 PO (13:07)
[2017-04-17 13:22] LABS: BASOPHILS % (AUTO) 0.3 % (0-3); EOSINOPHILS % (AUTO) 0.1 % (0-5); MONOCYTES % (AUTO) 1.9 % (4-12); Mean Corpuscular Hemoglobin 29.6 pg (27.0-35.0); Mean Corpuscular Volume 96.1 fL (81-100); NEUTROPHILS % (AUTO) 92.9 % (40-74); Platelet Count 327 bil/L (150-400)
[2017-04-17] MEDS ORDERED: ROPI0.5T2 PO (13:22)
[2017-04-17] MEDS ORDERED: LOSA25TA21 PO (13:22)
[2017-04-17] MEDS ORDERED: BENZ100C8 PO (13:22)
[2017-04-17 13:26] VITALS: BP 140/54; PULSE 72; RESP 14; O2SAT 96
[2017-04-17 13:47] LABS: TROPONIN T < 0.010 ug/L (0.0-0.011)
[2017-04-17 14:16] VITALS: BP 143/61; PULSE 75; RESP 16; O2SAT 96
[2017-04-17 14:23] VITALS: BP 143/61; PULSE 75; RESP 16; O2SAT 96
== END 2017-04-17 14:34 ==
LOC: SED 12:00
DX: R07.9 Chest pain, unspecified (principal); E11.9 Type 2 diabetes mellitus without complications; I10 Essential (primary) hypertension; Z85.9 Personal history of malignant neoplasm, unspecified; Z87.891 Personal history of nicotine dependence; Z79.84 Long term (current) use of oral hypoglycemic drugs; Z88.0 Allergy status to penicillin

== ENCOUNTER 2017-05-12 19:07 | Emergency (ER) | payer MEDICARE, OTHER ==
[~2017-05-12] VITALS: Ht 160 cm; Wt 88.6 kg
[~2017-05-12 19:07] MED LIST changes: +BENZ100C8 PO; -CEPH-512 PO; +CLIN-78 PO; -MAGN400O4 PO; +ROPI0.5T2 PO
[2017-05-12 19:25] VITALS: BP 163/70; PULSE 75; RESP 18; O2SAT 98
--- NOTE | 2017-05-12 21:01 | ED.REPORT ---
HPI-General Illness Date of Service May 12, 2017 ED Provider: Evans Barrios MD An 87 year old female with a history of MRSA infection, recent I&D, diabetes, hypertension, myasthenia gravis, GERD, thyroid disease and bladder cancer presents to the ED complaining of chills. The pt has been experiencing chills, nausea, vomiting, abdominal pain, decreased appetite and urinary frequency over the last several days. Staff at the pt's residence of [facility] suspected that she is dehydrated. The pt also admits to her baseline diarrhea but denies fever, constipation or dysuria. Nursing Notes Stated Complaint: BODY CHILLS, VOMITING Chief Complaint: Female Abdominal Pain Nursing Notes Reviewed: Yes Allergies: Coded Allergies: Penicillins (Verified Allergy, Severe, RASH,ITCH, 05/12/17) lisinopril (Verified Adverse Reaction, Severe, COUGH, 05/12/17) Scheduled Amlodipine (Amlodipine) 5 Mg Tablet 10 MG PO DAILY Clindamycin (Clindamycin) 300 Mg Capsule 300 MG PO Q8hrs Cyanocobalamin (Vitamin B-12) (Vitamin B-12) 500 Mcg Tab.subl 500 MCG SL DAILY Ferrous Sulfate (Ferrous Sulfate) 325 Mg Tablet.dr 325 MG PO BID Folic Acid (Folic Acid) 0.4 Mg Tablet 0.4 MG PO DAILY Lactobacillus Combo No.11 (Probiotic) 1 Each Cap.sprink 1 EACH PO DAILY Lamotrigine (Lamotrigine) 200 Mg Tablet 200 MG PO BID Levothyroxine (Levothyroxine) 100 Mcg Tablet 100 MCG PO DAILY Losartan Potassium (Losartan Potassium) 25 Mg Tablet 25 MG PO DAILY Metformin (Metformin) 500 Mg Tablet 500 MG PO TID Omeprazole (Omeprazole) 20 Mg Tablet.dr 20 MG PO DAILY Prednisone (Deltasone) 20 Mg Tablet 20 MG PO DAILY Pyridostigmine [place] (Pyridostigmine [place]) 60 Mg Tablet 60 MG PO QIDWA Quetiapine Fumarate (Quetiapine Fumarate) 25 Mg Tablet 12.5 MG PO HS Vit A/Vit C/Vit E/Zinc/Copper (Preservision Areds Tablet) 1 Each Tablet 1 EACH PO DAILY Scheduled PRN Acetaminophen (Acetaminophen) 325 Mg Tablet 650 MG PO Q4H PRN PRN For Pain Benzonatate (Benzonatate) 100 Mg Capsule 100 MG PO TID PRN PRN For Cough Loperamide (Loperamide) 2 Mg Capsule 2-4 MG PO Q4H PRN PRN For Diarrhea or Loose Stool Ondansetron (Zofran) 4 Mg Tablet 4 MG PO Q4H PRN PRN For Nausea Phenazopyridine (Phenazopyridine) 200 Mg Tablet 200 MG PO TID PRN PRN For Pain Ropinirole (Ropinirole) 0.5 Mg Tablet 0.5 MG PO 1-3 hours before bed PRN PRN For Restlessness General Time Seen by MD: 21:01 Chief Complaint Other (Chills) Hx Obtained From: Patient, Other family... Arrived By: Wheelchair Sudden in Onset?: No Onset Occurred: 3 days ago ("several days") Symptom Duration: Since onset Recent Healthcare: Recent doctor visit Similar Sx Previous: No Past Medical History Past Medical History Notes: Neurologist: Dr. Miner Past Medical History 1. bladder cancer s/p tumor removal 2. Morbid obesity 3. History palpitations 4. Restless legs syndrome 5. Myasthenia gravis 6. Diverticulitis with perforation 7. Macular degeneration 8. 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 Diabetes mellitus 12. GERD 13. Hypertension 14. Thyroid disease 15. MRSA infection Past Surgical History 1. Cystoscopy, with transurethral resection of bladder tumors (greater than 5 cm) and Mitomycin intravesical instillation 2. thyroidectomy 3. sigmoid resection due to diverticulitis 4. Appendectomy Smoking History Former Smoker Social History Lives at the [facility] Alcohol Use: "Social" Drug Use: Denies drug use Other Social History: Good social support, Local resident Ambulatory Status Walker Review of Systems decreased appetite Full Review of Systems Constitutional: Denies: Chills, Fever Respiratory: Denies: Non-productive cough, Shortness of breath Cardiovascular: Denies: Chest pain GI: Reports: Abdominal pain, Diarrhea (baseline), Nausea, Vomiting, Denies: Constipation Female: Reports: Urinary frequency, Denies: Dysuria Musculoskeletal: Denies: Back pain, Neck pain Skin: Denies Rash Complete sys rev & neg: except as marked. Physical Exam Vital Signs Vital Signs Date Time Temp Pulse Resp B/P Pulse Ox O2 Delivery O2 Flow Rate FiO2 05/13/17 00:00 36.5 72 18 154/72 95 Room Air 05/12/17 19:25 36.4 75 18 163/70 98 Room Air Initial VS: Reviewed General/Constitutional: Awake, Alert Head / Eyes: Atraumatic, Normocephalic, PERRL, EOMI ENT: Atraumatic, Airway patent, Mucous membranes moist Neck: Atraumatic, Supple, Full range of motion Respiratory / Chest: Atraumatic, Breath sounds NL, Breath sounds = bilat, No respiratory distress Cardiovascular: Heart rate NL, Regular rhythm, Heart sounds NL, No gallop, No murmurs, No rubs Abdomen: Soft healed wound on LUQ from recent I&D mild epigastric tenderness abdomen otherwise nontender Back: Atraumatic, Full range of motion Upper Extremities Upper Extremity / MS: Atraumatic, Full range of motion Lower Extremity / Pelvis / MS: Atraumatic, Full range of motion Skin: Color NL, No rash, Warm, Dry Neurologic: Oriented X3, Speech NL, No motor deficits, No sensory deficits Psychiatric: Affect NL, Mood NL Interpretation & Diagnostics Lab Results Interpretation Result Diagram: 05/12/178 05/12/17 210 Test 05/12/17 21:08 05/12/17 22:04 White Blood Count 10.1th/mm3 (3.8-10.1) Red Blood Count 3.41mil/mm3 (3.90-5.20) Hemoglobin 10.2g/dL (12.0-15.6) Hematocrit 32.9% (35.0-46.0) Mean Corpuscular Volume 96.5fL (81-100) Mean Corpuscular Hemoglobin 29.9pg (27.0-35.0) Mean Corpuscular Hemoglobin Concent 31.0% (32.0-37.0) Red Cell Distribution Width 14.4% (12.3-15.4) Platelet Count 317bil/L (150-400) Neutrophils (%) (Auto) 84.5% (40-74) Lymphocytes (%) (Auto) 7.4% (14-46) Monocytes (%) (Auto) 5.9% (4-12) Eosinophils (%) (Auto) 0% (0-5) Basophils (%) (Auto) 0.2% (0-3) Sodium Level 139mEq/L (134-144) Potassium Level 4.6mEq/L (3.5-5.2) Chloride Level 100mEq/L (97-108) Carbon Dioxide Level 21mmol/L (18-29) Blood Urea Nitrogen 17mg/dL (8-27) Creatinine 1.38mg/dL (0.57-1.00) Estimat Glomerular Filtration Rate 52mL/min (>59) Glucose Level 106mg/dL (60-99) Calcium Level 8.8mg/dL (8.5-10.1) Total Bilirubin 0.2mg/dL (0.0-1.2) Aspartate Amino Transf (AST/SGOT) 17U/L (0-50) Alanine Aminotransferase (ALT/SGPT) 16U/L (0-32) Alkaline Phosphatase 45U/L (25-165) Troponin T 0.010ug/L (0.0-0.011) Total Protein 7.0g/dL (6.4-8.4) Albumin 4.2g/dL (3.4-5.0) Lipase 51U/L (13-60) Hold [place] Top Tube Received (Received) Urine Color Yellow (YELLOW) Urine Appearance Clear (CLEAR,HAZY) Urine pH 5.5 (5.0-8.0) Urine Specific [place] >1.030 (1.003-1.035) Urine Protein 30mg/dL (NEG,TRACE) Urine Glucose (UA) Negativemg/dL (NEGATIVE) Urine Ketones 15mg/dL (NEGATIVE) Urine Occult Blood Trace (NEGATIVE) Urine Nitrite Negative (NEGATIVE) Urine Bilirubin Negative (NEGATIVE) Urine Urobilinogen Normalmg/dL (NORMAL) Urine Leukocyte Esterase Small (NEGATIVE) Urine RBC 0-2/hpf (0-2) Urine WBC >50/hpf (0-5) Urine Epithelial Cells Many/hpf (NONE-MOD) Urine Crystals None seen (NONE SEEN) Urine Bacteria Moderate/hpf (NONE-FEW) Urine Hyaline Casts None/lpf (NONE) Urine Granular Casts None seen (NONE SEEN) Urine Waxy Casts None seen (NONE SEEN) Urine Red Blood Cell Casts None seen (NONE SEEN) Urine White Blood Cell Casts None seen (NONE SEEN) Urine Mucus None seen (None Seen) Urine Trichomonas None seen (NONE SEEN) Urine Yeast None (NONE SEEN) Urinalysis Comment None Urine Culture Reflexed Indicated ECG Interpretation ECG Interpretation: normal sinus rhythm with a rate of 67 prolonged KS interval at 247 no change from previous dated 04/17/2017 Time: 21:34 Interpreted by: ED physician X-Ray Chest Interpretation Chest Xray Interpretation: IMPRESSION: No acute process. Dictated by: Tonio Valderrama M.D. on 05/12/2017 at 21:48 Approved by: Tonio Valderrama M.D. on 05/12/2017 at 21:48 Interpretation / Wet Read by: Interpret - Radiologist Re-Eval/Medical Decision Source of Hx: Old records Time of Eval: 23:17 Patient Status: Condition improved Re-Evaluation/Progress Note: Pt rechecked, who is feeling significantly better. The diagnosis and plan for discharge are discussed. The pt understands and agrees with the plan. All questions are addressed at this time. Counseled Regarding: Diagnosis, Lab results, Need for follow-up, When/why to return to ED Discharge & Departure Primary Impression: UTI (urinary tract infection) Urinary tract infection type: acute cystitis Hematuria presence: without hematuria Qualified Code: N30.00 - Acute cystitis without hematuria Disposition: Home Discharge Condition All VS Reviewed: Yes Condition: Stable Patient Instructions: Urinary Tract Infection in Women (ED), Gastritis (ED) Additional Instructions: Emergency department evaluation tonight includes interview, examination, labs and review of past records. Examination and labs are reassuring although there may be a urinary tract infection present. While we are awaiting culture results , we have started cephalexin 500 mg 3 times a day. This should be taken for 5 days, unless urine culture shows that there is no infection. Call for results of urine culture in 48 hours. May use ondansetron as needed for nausea. Return to emergency department for generalized weakness, fevers, shaking chills frequent vomiting or abdominal pain. Follow-up with primary care next week. Continue previous home medications. Referrals: Rosemary Keys MD (PCP) Scribe Attestation Portions of this note were transcribed by Edin Shoemaker. I, Dr. Barrios personally performed the history, physical exam and medical decision-making; I reviewed and confirmed the accuracy of the information in the transcribed note. copies to: Rosemary Keys MD, Donald L MD May 12, 2017 21:01 EDIN SHOEMAKER May 12, 2017 21:09
[2017-05-12] MEDS ORDERED: 0.9% Sodium Chloride 1,000 ML IV ONE (21:12)
[2017-05-12] MEDS ORDERED: Ondansetron 2 mg/mL 2 mL Inj IV PRN (21:15)
[2017-05-12 21:19] LABS: BASOPHILS % (AUTO) 0.2 % (0-3); EOSINOPHILS % (AUTO) 0 % (0-5); MONOCYTES % (AUTO) 5.9 % (4-12); Mean Corpuscular Hemoglobin 29.9 pg (27.0-35.0); Mean Corpuscular Volume 96.5 fL (81-100); NEUTROPHILS % (AUTO) 84.5 % (40-74); Platelet Count 317 bil/L (150-400)
[2017-05-12 21:39] LABS: TROPONIN T 0.01 ug/L (0.0-0.011)
--- NOTE | 2017-05-12 21:50 | DRSVH ---
PROCEDURE: X-RAY CHEST ONE VIEW, PORTABLE ([id number]) INDICATIONS: weakness and nausea TECHNIQUE: One view of the chest was acquired. COMPARISON: None. FINDINGS: Surgical changes and devices: None. Lungs and pleura: No pleural effusions or pneumothorax. Lungs are clear. Mediastinum: Mediastinal contours appear normal. Heart size is normal. Bones and chest wall: No suspicious bony lesions. Overlying soft tissues appear unremarkable. IMPRESSION: No acute process. Dictated by: Tonio Valderrama M.D. on 05/12/2017 at 21:48 Approved by: Tonio Valderrama M.D. on 05/12/2017 at 21:48
[2017-05-12 22:25] LABS: APPEARANCE,URINE CLEAR (CLEAR,HAZY); COLOR,URINE YELLOW (YELLOW); OCCULT BLOOD,URINE TRACE (NEGATIVE); PH,URINE 5.5 (5.0-8.0); UROBILINOGEN,URINE NORMAL (NORMAL)
[2017-05-12] MEDS ORDERED: _Ondansetron ODT 4 mg Tablet PO PRN (23:25)
[2017-05-13] VITALS: BP 154/72; PULSE 72; RESP 18; O2SAT 95
[2017-05-13] MEDS ORDERED: _Cephalexin 500 mg Capsule PO SCH (08:30)
== END 2017-05-13 00:02 | disposition home or self-care (01) ==
LOC: SED 19:07
DX: N30.00 Acute cystitis without hematuria (principal); I10 Essential (primary) hypertension; K21.9 Gastro-esophageal reflux disease without esophagitis; E11.9 Type 2 diabetes mellitus without complications; G40.909 Epilepsy, unspecified, not intractable, without status epilepticus; E07.9 Disorder of thyroid, unspecified; Z87.891 Personal history of nicotine dependence; Z79.84 Long term (current) use of oral hypoglycemic drugs; Z88.0 Allergy status to penicillin; Z88.8 Allergy status to other drugs, medicaments and biological substances
CPT/HCPCS: 36415; 71010; 80053; 81000; 83690; 84484; 85025; 87086; 87088; 93005; 96361; 96374; 99285; J2405; J7030

== ENCOUNTER 2017-05-21 19:45 | Emergency (ER) | payer MEDICARE, OTHER ==
[~2017-05-21] VITALS: Ht 161.3 cm; Wt 88.6 kg
[2017-05-21 19:59] VITALS: BP 149/70; PULSE 82; RESP 16; O2SAT 99
[2017-05-21 21:05] LABS: Mean Corpuscular Hemoglobin 29.9 pg (27.0-35.0); Mean Corpuscular Volume 95.8 fL (81-100)
[2017-05-21 21:33] LABS: BASOPHILS % (AUTO) 1 % (0-3); EOSINOPHILS % (AUTO) 0 % (0-5); MONOCYTES % (AUTO) 4 % (4-12); NEUTROPHILS % (AUTO) 86 % (40-74)
--- NOTE | 2017-05-21 21:33 | ED.REPORT ---
HPI-Abd Pain M 40 and Over Date of Service May 21, 2017 ED Provider: Ghassan Kingsley MD The pt is a 87 y/o female w/ a hx of bladder cancer, obesity, diverticulitis, GERD, HTN, and diabetes presenting to the ED due to vomiting onset 4 days ago. The pt also reports increased hiccupping and dizziness when she sits up from her chair. Denies abdominal pain, hematemesis or chest pain. The pt also experiences chronic diarrhea from her medications, takes an anti- diuretic for it, which gives her occasional constipation. She also takes an iron supplements which gives her dark stool. She also has chronic lower extremity edema. Nursing Notes Stated Complaint: STOMACH PROBLEMS Chief Complaint: Vomiting Nursing Notes Reviewed: Yes Allergies: Coded Allergies: Penicillins (Verified Allergy, Severe, RASH,ITCH, 05/12/17) lisinopril (Verified Adverse Reaction, Severe, COUGH, 05/12/17) Scheduled Amlodipine (Amlodipine) 5 Mg Tablet 10 MG PO DAILY Clindamycin (Clindamycin) 300 Mg Capsule 300 MG PO Q8hrs Cyanocobalamin (Vitamin B-12) (Vitamin B-12) 500 Mcg Tab.subl 500 MCG SL DAILY Ferrous Sulfate (Ferrous Sulfate) 325 Mg Tablet.dr 325 MG PO BID Folic Acid (Folic Acid) 0.4 Mg Tablet 0.4 MG PO DAILY Lactobacillus Combo No.11 (Probiotic) 1 Each Cap.sprink 1 EACH PO DAILY Lamotrigine (Lamotrigine) 200 Mg Tablet 200 MG PO BID Levothyroxine (Levothyroxine) 100 Mcg Tablet 100 MCG PO DAILY Losartan Potassium (Losartan Potassium) 25 Mg Tablet 25 MG PO DAILY Metformin (Metformin) 500 Mg Tablet 500 MG PO TID Omeprazole (Omeprazole) 20 Mg Tablet.dr 20 MG PO DAILY Ondansetron (Ondansetron) 4 Mg Tablet 4 MG PO QID Prednisone (Deltasone) 20 Mg Tablet 20 MG PO DAILY Pyridostigmine [place] (Pyridostigmine [place]) 60 Mg Tablet 60 MG PO QIDWA Quetiapine Fumarate (Quetiapine Fumarate) 25 Mg Tablet 12.5 MG PO HS Vit A/Vit C/Vit E/Zinc/Copper (Preservision Areds Tablet) 1 Each Tablet 1 EACH PO DAILY Scheduled PRN Acetaminophen (Acetaminophen) 325 Mg Tablet 650 MG PO Q4H PRN PRN For Pain Benzonatate (Benzonatate) 100 Mg Capsule 100 MG PO TID PRN PRN For Cough Loperamide (Loperamide) 2 Mg Capsule 2-4 MG PO Q4H PRN PRN For Diarrhea or Loose Stool Ondansetron (Zofran) 4 Mg Tablet 4 MG PO Q4H PRN PRN For Nausea Phenazopyridine (Phenazopyridine) 200 Mg Tablet 200 MG PO TID PRN PRN For Pain Ropinirole (Ropinirole) 0.5 Mg Tablet 0.5 MG PO 1-3 hours before bed PRN PRN For Restlessness General Time Seen by MD: 21:29 Chief Complaint Other (Vomiting) Hx Obtained From: Patient Sudden in Onset?: Yes Onset Occurred: 4 days ago Symptom Duration: Since onset Recent Healthcare: No recent hospitalization, Recent doctor visit Similar Sx Previous: Yes Past Medical History Past Medical History Notes: Neurologist: Dr. Miner Past Medical History 1. bladder cancer s/p tumor removal 2. Morbid obesity 3. History palpitations 4. Restless legs syndrome 5. Myasthenia gravis 6. Diverticulitis with perforation 7. Macular degeneration 8. 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 Diabetes mellitus 12. GERD 13. Hypertension 14. Thyroid disease 15. MRSA infection Past Surgical History 1. Cystoscopy, with transurethral resection of bladder tumors (greater than 5 cm) and Mitomycin intravesical instillation 2. thyroidectomy 3. sigmoid resection due to diverticulitis 4. Appendectomy Smoking History Former Smoker Social History Lives at the [facility] Alcohol Use: "Social" Drug Use: Denies drug use Other Social History: Good social support, Local resident Ambulatory Status Walker Review of Systems Increased hiccuping and dizziness when she sits up from her chair; Chronic diarrhea and constipation from medications and dark stools from iron supplement; Cardiovascular: Denies: Chest pain GI: Reports: Nausea, Vomiting, Denies: Abdominal pain, Hematemesis Complete sys rev & neg: except as marked. Physical Exam Initial Vital Signs Vital Signs (First) Date Time Temp Pulse Resp B/P Pulse Ox O2 Delivery O2 Flow Rate FiO2 05/21/17 19:59 36.8 82 16 149/70 99 Room Air Initial VS: Reviewed, Vital signs normal Head / Eyes: Atraumatic, Normocephalic, PERRL Neck: Supple, Non-tender, Full range of motion Extremities: Vascular intact, Neuro intact, No swelling, No tenderness Skin: Warm, Dry, No cyanosis Neurologic: Alert, Oriented, Nonfocal Psychiatric: Mood/affect normal, Behavior normal, Normal thought content General/Constitutional: Awake, Alert Appearance / Presentation: Positive: Pale Respiratory / Chest: Atraumatic, Breath sounds NL, Breath sounds = bilat Cardiovascular: Heart rate NL, Regular rhythm, Heart sounds NL Tenderness/Guarding/Rebound: Positive: Tender diffuse Bowel Sounds / Distention: Positive: Bowel sounds tympanitic, Distention moderate Back: Atraumatic, Full range of motion ENT: Airway patent Mouth: Positive: Mucous membranes dry Dry lips and tongue; Interpretation & Diagnostics Lab Results Interpretation Result Diagram: 05/21/17 21005/21/17 210 Test 05/21/17 21:02 05/21/17 21:48 05/21/17 23:38 White Blood Count 9.3th/mm3 (3.8-10.1) Red Blood Count 3.61mil/mm3 (3.90-5.20) Hemoglobin 10.8g/dL (12.0-15.6) Hematocrit 34.6% (35.0-46.0) Mean Corpuscular Volume 95.8fL (81-100) Mean Corpuscular Hemoglobin 29.9pg (27.0-35.0) Mean Corpuscular Hemoglobin Concent 31.2% (32.0-37.0) Red Cell Distribution Width 14.7% (12.3-15.4) Platelet Count aníbal/L (150-400) Neutrophils (%) (Auto) 86% (40-74) Lymphocytes (%) (Auto) 7% (14-46) Monocytes (%) (Auto) 4% (4-12) Eosinophils (%) (Auto) 0% (0-5) Basophils (%) (Auto) 1% (0-3) Band Neutrophils % 2% (1-5) Hematology Comments Platelet Sodium Level 140mEq/L (134-144) Potassium Level 4.8mEq/L (3.5-5.2) Chloride Level 102mEq/L (97-108) Carbon Dioxide Level 20mmol/L (18-29) Blood Urea Nitrogen 15mg/dL (8-27) Creatinine 1.22mg/dL (0.57-1.00) Estimat Glomerular Filtration Rate 60mL/min (>59) Glucose Level 131mg/dL (60-99) Calcium Level 9.3mg/dL (8.5-10.1) Magnesium Level 1.9mg/dL (1.6-2.6) Total Bilirubin 0.2mg/dL (0.0-1.2) Aspartate Amino Transf (AST/SGOT) 11U/L (0-50) Alanine Aminotransferase (ALT/SGPT) 8U/L (0-32) Alkaline Phosphatase 41U/L (25-165) Total Protein 7.0g/dL (6.4-8.4) Albumin 4.2g/dL (3.4-5.0) Lipase 42U/L (13-60) Hold Purple Top Tube Received (Received) Hold Blue Top Tube Received (Received) Urine Color Yellow (YELLOW) Urine Appearance Slightly cloudy Urine pH 5.5 (5.0-8.0) Urine Specific [place] 1.030 (1.003-1.035) Urine Protein 100mg/dL (NEG,TRACE) Urine Glucose (UA) Negativemg/dL (NEGATIVE) Urine Ketones Tracemg/dL (NEGATIVE) Urine Occult Blood Trace (NEGATIVE) Urine Nitrite Negative (NEGATIVE) Urine Bilirubin Negative (NEGATIVE) Urine Urobilinogen Normalmg/dL (NORMAL) Urine Leukocyte Esterase Negative (NEGATIVE) Urine RBC 0-2/hpf (0-2) Urine WBC 0-5/hpf (0-5) Urine Epithelial Cells Moderate/hpf (NONE-MOD) Urine Crystals None seen (NONE SEEN) Urine Bacteria Many/hpf (NONE-FEW) Urine Hyaline Casts 5/20/lpf (NONE) Urine Granular Casts None seen (NONE SEEN) Urine Waxy Casts None seen (NONE SEEN) Urine Red Blood Cell Casts None seen (NONE SEEN) Urine White Blood Cell Casts None seen (NONE SEEN) Urine Mucus None seen (None Seen) Urine Trichomonas None seen (NONE SEEN) Urine Yeast None (NONE SEEN) Urinalysis Comment None Urine Culture Reflexed Indicated Lab values outside NL range: no clinical significance. X-Ray Abdominal Interpretation Impression: Nonspecific bowel gas pattern. No evidence of free air or small bowel obstruction. Study: 2 view Interpretation / Wet Read by: Wet read ED physician CT Head Interpretation Study: Head CT no contrast Interpretation / Wet Read by: Wet read ED physician NL CT Head Findings: No acute disease Re-Eval/Medical Decision Med Decision/Clinical Course The vomiting appears to be from a gastroenteritis. No evidence of bowel obstruction. Clear liquids. Symptoms controlled with ondansetron and fluids. Labs are normal to include no evidence of persistent urinary tract infection. Additionally, the patient fell while here in the emergency room, rolling off of the gurney in x-ray. There is no evidence at this time of serious injury from the fall/head trauma, besides a small left frontal hematoma. She is not on blood thinner and there is no evidence of intracranial injury. Source of Hx: Old records Time of Eval: 22:54 Re-Evaluation/Progress Note: Rechecked pt and discussed plan for CT. Time of Eval: 23:58 Re-Evaluation/Progress Note: Pt rechecked. Informed pt of plan for treatment. Pt understands and agrees with plan for treatment. F/U instructions and RTER warnings given. All questions addressed. Counseled Regarding: Diagnosis, Lab results, Need for follow-up, When/why to return to ED Discharge & Departure Primary Impression: Vomiting Vomiting type: unspecified Vomiting Intractability: non-intractable Nausea presence: with nausea Qualified Code: R11.2 - Nausea with vomiting, unspecified Additional Impressions: Dehydration Fall from bed Encounter type: initial encounter Qualified Code: W06.XXXA - Fall from bed, initial encounter Disposition: Home Vital Signs - All Vital Signs Date Time Temp Pulse Resp B/P Pulse Ox O2 Delivery O2 Flow Rate FiO2 05/22/17 00:12 70 20 156/66 95 Room Air 05/21/17 22:44 71 14 158/61 96 Room Air 05/21/17 19:59 36.8 82 16 149/70 99 Room Air )( All Prior VS Reviewed: Yes Condition: Stable Patient Instructions: Acute Nausea and Vomiting (ED), Fall Prevention for Older Adults (DC), Head Injury (ED) Additional Instructions: The vomiting appears to be from a gastroenteritis. No evidence of bowel obstruction. Clear liquids. Ondansetron 4 mg dissolved orally 4 times a day as needed for nausea and vomiting, #10 prescribed. There is no evidence at this time of injury from the fall/head trauma. If any of the danger signs listed on the head injury instruction sheet occur, please call 911 and return. Labs are normal to include no evidence of persistent urinary tract infection. Referrals: Rosemary Keys MD (PCP) Scribe Attestation Portions of this note were transcribed by Castro Landon. I, Dr. Kingsley personally performed the history, physical exam and medical decision-making; I reviewed and confirmed the accuracy of the information in the transcribed note. copies to: Rosemary Keys MD, Howard L MD May 21, 2017 21:33 Castro Landon May 21, 2017 22:07
[2017-05-21] MEDS ORDERED: Ondansetron 2 mg/mL 2 mL Inj IVPUSH PRN (21:40)
[2017-05-21] MEDS ORDERED: 0.9% Sodium Chloride 500 ML IV ONE (21:40)
[2017-05-21 22:02] LABS: Magnesium 1.9 mg/dL (1.6-2.6)
[2017-05-21 22:44] VITALS: BP 158/61; PULSE 71; RESP 14; O2SAT 96
[2017-05-21 23:49] LABS: APPEARANCE,URINE SLIGHTLY CLOUDY (CLEAR,HAZY); COLOR,URINE YELLOW (YELLOW); OCCULT BLOOD,URINE TRACE (NEGATIVE); PH,URINE 5.5 (5.0-8.0); UROBILINOGEN,URINE NORMAL (NORMAL)
[2017-05-21] MEDS ORDERED: ONDA-53 PO (23:54)
[2017-05-22 00:12] VITALS: BP 156/66; PULSE 70; RESP 20; O2SAT 95
--- NOTE | 2017-05-22 07:50 | DRSVH ---
PROCEDURE: CT BRAIN WITHOUT CONTRAST ([id number]) INDICATIONS: fall, head trauma, no LOC TECHNIQUE: Noncontrast 4.5 mm thick angled axial sections acquired from the foramen magnum to the vertex, with c oronal reformats. COMPARISON: [facility], CT, BRAIN W/O CONTRAST, 06/10/2014, 14:27. [facility], CT, BRAIN W/O CONTRAST, 10/18/2010, 11:23. [facility], CT, BRAIN W/O CONTRAST, 010, 12:04. [facility], CT, BRAIN W/O CONTRAST, 02/08/2004, 12:04. FINDINGS: Image quality: Excellent. CSF spaces: Basal cisterns are patent. No extra-axial fluid collections. Ventricles are normal in size and shape. Brain: No midline shift. No intracranial masses or hemorrhage. Pearson-white matter interface is norm al. Skull and face: Calvarium and visualized facial bones are intact, without suspicious lesions. Sinuses: Visualized sinuses and mastoids are clear. IMPRESSION: 1. No CT evidence of acute intracranial pathology. 2. There are no discrepancies with the preliminary report. Dictated by: Matt Gentile M.D. on 05/22/2017 at 7:46 Approved by: Matt Gentile M.D. on 05/22/2017 at 7:48
--- NOTE | 2017-05-22 08:12 | DRSVH ---
PROCEDURE: X-RAY ACUTE ABDOMINAL SERIES ([id number]) INDICATIONS: abd pain, distention, vomiting TECHNIQUE: One view chest and two views of the abdomen were acquired. COMPARISON: [facility], CT, CT ABDOMEN WO AND W CONTRAST, 04/19/2016, 10:45 AM. [facility], CR, XR CHEST 1VW (PORTABLE), 05/12/2017, 21:29. FINDINGS: Surgical changes and devices: None. Chest: Lungs are clear. Heart size is normal. No pleural effusions. No pneumoperitoneum. Abdomen: Bowel gas pattern is normal. Mild gaseous prominence of the colon can be seen. No suspicio us calcifications. Visualized solid organ contours appear normal. Bones: No suspicious bony lesions. Degenerative changes are seen throughout, particularly involving the shoulders. IMPRESSION: There is mild gaseous prominence seen of the colon. No dilated loops of small bowel are seen. If the patient's symptoms persist or worsen, please consider a repeat plain film examination or a ded icated CT scan for further evaluation. Dictated by: Daron Louis M.D. on 05/22/2017 at 8:08 Approved by: Daron Louis M.D. on 05/22/2017 at 8:10
== END 2017-05-22 00:13 | disposition home or self-care (01) ==
LOC: SED 19:45
DX: R11.2 Nausea with vomiting, unspecified (principal); E86.0 Dehydration; R42 Dizziness and giddiness; W06.XXXA Fall from bed, initial encounter; Y93.89 Activity, other specified; Y92.89 Other specified places as the place of occurrence of the external cause; Y99.8 Other external cause status; R06.6 Hiccough; K52.9 Noninfective gastroenteritis and colitis, unspecified; M79.89 Other specified soft tissue disorders; K59.00 Constipation, unspecified; I10 Essential (primary) hypertension; K21.9 Gastro-esophageal reflux disease without esophagitis; E07.9 Disorder of thyroid, unspecified; E11.9 Type 2 diabetes mellitus without complications; G40.909 Epilepsy, unspecified, not intractable, without status epilepticus; Z86.14 Personal history of Methicillin resistant Staphylococcus aureus infection; Z85.51 Personal history of malignant neoplasm of bladder; Z90.89 Acquired absence of other organs; Z98.890 Other specified postprocedural states; Z79.84 Long term (current) use of oral hypoglycemic drugs; Z87.891 Personal history of nicotine dependence; Z88.0 Allergy status to penicillin; Z88.8 Allergy status to other drugs, medicaments and biological substances
CPT/HCPCS: 36415; 70450; 74022; 80053; 81000; 83690; 83735; 85025; 87086; 96361; 96374; 99285; J2405; J7040

== ENCOUNTER 2017-05-26 15:07 | Emergency (ER) | payer MEDICARE, OTHER ==
[~2017-05-26] VITALS: Ht 161.5 cm; Wt 84.1 kg
[~2017-05-26 15:07] MED LIST changes: +ONDA-53 PO
[2017-05-26 15:48] VITALS: BP 165/49; PULSE 76; RESP 14; O2SAT 94
[2017-05-26 15:59] VITALS: BP 146/47; PULSE 79; RESP 12; O2SAT 95
[2017-05-26 18:00] VITALS: BP 162/51; PULSE 74; RESP 21; O2SAT 97
--- NOTE | 2017-05-26 18:26 | ED.REPORT ---
HPI-General Illness Date of Service May 26, 2017 ED Provider: Junior Dasilva DO Pt is a 87 year old female with a history of DM, myasthenia gravis, GERD, HTN, and MRSA who presents to the ED complaining of global weakness onset 2 weeks ago. She c/o associated nausea, vomiting, chronic diarrhea, chronic cough, and orthostatic dizziness. Pt denies abdominal pain, but states that her abdomen feels sore. She denies fever, sore throat, urinary symptoms, and hematochezia. The pt also reports rolling off a table accidentally recently, resulting in diffuse bruising on her body. Pt states that she is taking anti-nausea medication with mild relief. Pt presented to the ED on 05/21/17 for vomiting and she was discharged with a diagnosis of gastroenteritis. Per pt's family, the pt has had 4 ED visits in the last 2 weeks, 2 of which were at [facility]. The pt was previously hospitalized for the same complaints at [facility] without a definitive diagnosis; however, there were some concerns that the pt's medication or dehydration were contributing to her symptoms previously. Nursing Notes Stated Complaint: NAUSEA, WEAKNESS Chief Complaint: General Complaint Nursing Notes Reviewed: Yes Allergies: Coded Allergies: Penicillins (Verified Allergy, Severe, RASH,ITCH, 05/26/17) lisinopril (Verified Adverse Reaction, Severe, COUGH, 05/26/17) Scheduled Amlodipine (Amlodipine) 5 Mg Tablet 10 MG PO DAILY Clindamycin (Clindamycin) 300 Mg Capsule 300 MG PO Q8hrs Cyanocobalamin (Vitamin B-12) (Vitamin B-12) 500 Mcg Tab.subl 500 MCG SL DAILY Ferrous Sulfate (Ferrous Sulfate) 325 Mg Tablet. 325 MG PO BID Folic Acid (Folic Acid) 0.4 Mg Tablet 0.4 MG PO DAILY Lactobacillus Combo No.11 (Probiotic) 1 Each Cap.sprink 1 EACH PO DAILY Lamotrigine (Lamotrigine) 200 Mg Tablet 200 MG PO BID Levothyroxine (Levothyroxine) 100 Mcg Tablet 100 MCG PO DAILY Losartan Potassium (Losartan Potassium) 25 Mg Tablet 25 MG PO DAILY Metformin (Metformin) 500 Mg Tablet 500 MG PO TID Omeprazole (Omeprazole) 20 Mg Tablet. 20 MG PO DAILY Ondansetron (Ondansetron) 4 Mg Tablet 4 MG PO QID Prednisone (Deltasone) 20 Mg Tablet 20 MG PO DAILY Pyridostigmine [place] (Pyridostigmine [place]) 60 Mg Tablet 60 MG PO QIDWA Quetiapine Fumarate (Quetiapine Fumarate) 25 Mg Tablet 12.5 MG PO HS Vit A/Vit C/Vit E/Zinc/Copper (Preservision Areds Tablet) 1 Each Tablet 1 EACH PO DAILY Scheduled PRN Acetaminophen (Acetaminophen) 325 Mg Tablet 650 MG PO Q4H PRN PRN For Pain Benzonatate (Benzonatate) 100 Mg Capsule 100 MG PO TID PRN PRN For Cough Loperamide (Loperamide) 2 Mg Capsule 2-4 MG PO Q4H PRN PRN For Diarrhea or Loose Stool Ondansetron (Zofran) 4 Mg Tablet 4 MG PO Q4H PRN PRN For Nausea Phenazopyridine (Phenazopyridine) 200 Mg Tablet 200 MG PO TID PRN PRN For Pain Ropinirole (Ropinirole) 0.5 Mg Tablet 0.5 MG PO 1-3 hours before bed PRN PRN For Restlessness General Time Seen by MD: 17:53 Chief Complaint Weakness Hx Obtained From: Patient, Other family... Arrived By: Walk-in Sudden in Onset?: No Onset Occurred: More than a week ago... (3 weeks) Symptom Duration: Since onset Severity: Current: No pain currently Severity: Maximum: No pain Recent Healthcare: Recent doctor visit Similar Sx Previous: Yes Past Medical History Past Medical History Notes: Neurologist: Dr. Miner Past Medical History 1. bladder cancer s/p tumor removal 2. Morbid obesity 3. History palpitations 4. Restless legs syndrome 5. Myasthenia gravis 6. Diverticulitis with perforation 7. Macular degeneration 8. 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 Diabetes mellitus 12. GERD 13. Hypertension 14. Thyroid disease 15. MRSA infection 16. Chronic diarrhea Past Surgical History 1. Cystoscopy, with transurethral resection of bladder tumors (greater than 5 cm) and Mitomycin intravesical instillation 2. thyroidectomy 3. sigmoid resection due to diverticulitis 4. Appendectomy 5. Hemorrhoidectomy Reports: Hysterectomy Smoking History Former Smoker [facility] Alcohol Use: Denies alcohol use Drug Use: Denies drug use Other Social History: Good social support, Local resident Ambulatory Status Walker Review of Systems Full Review of Systems Constitutional: Reports: Weakness - generalized, Denies: Fever Ears / Nose / Throat: Denies: Sore throat Respiratory: Reports: Non-productive cough GI: Reports: Abdominal pain (sore), Diarrhea, Nausea, Vomiting, Denies: Hematochezia Female: Denies: Dysuria, Hematuria, Urinary frequency, Urinary urgency, Urination decreased, Urination increased Neurologic: Reports: Dizziness Complete sys rev & neg: except as marked. Physical Exam Vital Signs Vital Signs Date Time Temp Pulse Resp B/P Pulse Ox O2 Delivery O2 Flow Rate FiO2 05/26/17 21:51 82 168/43 100 Room Air 05/26/17 19:49 75 20 179/92 98 Room Air 05/26/17 18:00 74 21 162/51 97 Room Air 05/26/17 15:59 79 12 146/47 95 Room Air 05/26/17 15:48 37.0 76 14 165/49 94 Initial VS: Reviewed Neck: Supple, Full range of motion Extremities: Vascular intact, Neuro intact Skin: Warm, Dry, No cyanosis Neurologic: Alert, Oriented, Nonfocal Psychiatric: Mood/affect normal, Behavior normal General/Constitutional: Awake, Alert HEAD/EYES: [place] eyes ENT: Atraumatic, Airway patent Mouth: Positive: Mucous membranes dry Respiratory / Chest: Atraumatic Rhonchi in the left lung Cardiovascular: Heart rate NL, Regular rhythm, Heart sounds NL Lower Ext Edema: Positive: Pitting (bilaterally) Abdomen: Atraumatic, Soft, Non-tender Interpretation & Diagnostics Lab Results Interpretation Result Diagram: 05/26/17 [id number] Test 05/26/17 18:29 05/26/17 19:52 White Blood Count 11.5th/mm3 (3.8-10.1) Red Blood Count 3.22mil/mm3 (3.90-5.20) Hemoglobin 9.6g/dL (12.0-15.6) Hematocrit 31.3% (35.0-46.0) Mean Corpuscular Volume 97.2fL (81-100) Mean Corpuscular Hemoglobin 29.8pg (27.0-35.0) Mean Corpuscular Hemoglobin Concent 30.7% (32.0-37.0) Red Cell Distribution Width 14.3% (12.3-15.4) Platelet Count 318bil/L (150-400) Neutrophils (%) (Auto) 87.3% (40-74) Lymphocytes (%) (Auto) 6.3% (14-46) Monocytes (%) (Auto) 4.3% (4-12) Eosinophils (%) (Auto) 0% (0-5) Basophils (%) (Auto) 0.2% (0-3) Sodium Level 143mEq/L (134-144) Potassium Level 5.3mEq/L (3.5-5.2) Chloride Level 104mEq/L (97-108) Carbon Dioxide Level 22mmol/L (18-29) Blood Urea Nitrogen 16mg/dL (8-27) Creatinine 1.23mg/dL (0.57-1.00) Estimat Glomerular Filtration Rate 59mL/min (>59) Glucose Level 121mg/dL (60-99) Calcium Level 8.8mg/dL (8.5-10.1) Magnesium Level 1.9mg/dL (1.6-2.6) Total Bilirubin 0.2mg/dL (0.0-1.2) Aspartate Amino Transf (AST/SGOT) 9U/L (0-50) Alanine Aminotransferase (ALT/SGPT) 7U/L (0-32) Alkaline Phosphatase 42U/L (25-165) Troponin T < 0.010ug/L (0.0-0.011) Total Protein 6.6g/dL (6.4-8.4) Albumin 3.9g/dL (3.4-5.0) Hold Hoffman Top Tube Received (Received) Urine Color Yellow (YELLOW) Urine Appearance Hazy (CLEAR,HAZY) Urine pH 5.0 (5.0-8.0) Urine Specific [place] 1.020 (1.003-1.035) Urine Protein 30mg/dL (NEG,TRACE) Urine Glucose (UA) Negativemg/dL (NEGATIVE) Urine Ketones Tracemg/dL (NEGATIVE) Urine Occult Blood Trace (NEGATIVE) Urine Nitrite Negative (NEGATIVE) Urine Bilirubin Negative (NEGATIVE) Urine Urobilinogen Normalmg/dL (NORMAL) Urine Leukocyte Esterase Negative (NEGATIVE) Urine RBC 0-2/hpf (0-2) Urine WBC 0-5/hpf (0-5) Urine Epithelial Cells Few/hpf (NONE-MOD) Urine Crystals Amorphous urates (NONE Urine Bacteria Few/hpf (NONE-FEW) Urine Hyaline Casts None/lpf (NONE) Urine Granular Casts None seen (NONE SEEN) Urine Waxy Casts None seen (NONE SEEN) Urine Red Blood Cell Casts None seen (NONE SEEN) Urine White Blood Cell Casts None seen (NONE SEEN) Urine Mucus None seen (None Seen) Urine Trichomonas None seen (NONE SEEN) Urine Yeast None (NONE SEEN) Urinalysis Comment None Urine Culture Reflexed Not indicated Lab Results Interpretation: WBC - 11.5, high RBC - 3.22, low Hgb - 9.6, low MCHC - 30.7, low Neut % - 87.3, high Lymph %, 6.3, low Potassium - 5.3, high Creatinine - 1.23, high Glucose - 121, high ECG Interpretation ECG Interpretation: Sinus rhythm with a rate of [address] segments Time: 18:40 Interpreted by: ED physician X-Ray Chest Interpretation Chest Xray Interpretation: IMPRESSION: No acute pulmonary process. Dictated by: Sharona Gonzalez M.D. on 05/26/2017 at 20:06 View: Portable, 1 view Interpretation / Wet Read by: Interpret - Radiologist Re-Eval/Medical Decision Med Decision/Clinical Course This is a very delightful 87-year-old female who suffers with chronic weakness related to myasthenia gravis. She also has been nauseous for a few days. She has had loose stools and according to her family she does not like to drink liquids. She presents with orthostatic lightheadedness. Basically dehydration. No chest pain. No presyncope. Nothing that makes me think pulmonary emboli or myocardial infarction. On exam she was orthostatic. Her pulse pressure was rather widened as well. And should dry membranes. Beyond that her exam was very benign. She did suffer a head injury a few days ago and she has got bruising on her face. Scans from a few days ago were normal. She was fluid resuscitated. She received some Zofran. She is unable to keep some liquids down. Her EKG and laboratory work was reassuring. She does have chronic anemia. Chronic renal insufficiency which appears to be at her baseline. Her urine does not appear infected. I was going to admit her to the hospital for overnight hydration however she felt much better and wanted to go home. She lives at an assisted living facility and she does much better there. Her family is very comfortable with her being there and they like to take her back. She did pass a road test and that we are able to get her up nor wheelchair and although she did have a slight drop in her diastolic blood pressure she felt well. She has agreed to drink some more liquids. Especially over the weekend. She is a follow-up on Monday with Dr. Tucker sweat think this is appropriate. I do not think she is having acute myasthenic crisis. She has no focal weakness. She has no bulbar weakness. No respiratory difficulties. Her extraocular motion is intact. Her cranial nerves are intact. All things considered I think she is dehydrated and she should do well. I did ask the family to bring her back they have any problems or any new or worrisome symptoms. Source of Hx: Old records Time of Eval: 19:15 Re-Evaluation/Progress Note: Informed pt of reassuring ECG and plan to view x-ray. All questions addressed. Time of Eval: 21:26 Re-Evaluation/Progress Note: Pt rechecked. Informed pt of anemia/dehydration and plan for discharge. Pt understands and agrees with plan for discharge. F/U instructions and RTER warnings given. All questions addressed. Counseled Regarding: Diagnosis, Lab results, Need for follow-up, When/why to return to ED Discharge & Departure Primary Impression: Dehydration Additional Impression: Generalized weakness Disposition: Home Discharge Condition All VS Reviewed: Yes Condition: Stable Patient Instructions: Acute Nausea and Vomiting (DC), Dehydration (ED) Additional Instructions: Increase your liquid consumption over the weekend. Call your doctor on Monday for follow-up next week. Your laboratory work show signs of dehydration and you are also anemic. You do have a history of anemia but you also have a history of GI bleeding. If you develop any black stools or any abdominal pain or any vomiting that is bloody or black come right back to the emergency department. Use the Zofran which was prescribed as directed. Laboratory work is otherwise reassuring. No signs of bladder infection. Do not hesitate to return if any problems or any new or worrisome symptoms. Referrals: Rosemary Keys MD (PCP) Scribe Attestation Portions of this note were transcribed by Suzy Walker. IDr. Dasilva personally performed the history, physical exam and medical decision-making; I reviewed and confirmed the accuracy of the information in the transcribed note. Signed by : Reuben Hernandez, 05/26/17. copies to: Rosemary Keys MD, Todd P DO May 26, 2017 18:26 Suzy De Los Santos May 26, 2017 18:36
[2017-05-26] MEDS ORDERED: 0.9% Sodium Chloride 1,000 ML IV ONE (18:35)
[2017-05-26 18:41] LABS: BASOPHILS % (AUTO) 0.2 % (0-3); EOSINOPHILS % (AUTO) 0 % (0-5); MONOCYTES % (AUTO) 4.3 % (4-12); Mean Corpuscular Hemoglobin 29.8 pg (27.0-35.0); Mean Corpuscular Volume 97.2 fL (81-100); NEUTROPHILS % (AUTO) 87.3 % (40-74); Platelet Count 318 bil/L (150-400)
[2017-05-26 19:17] LABS: Magnesium 1.9 mg/dL (1.6-2.6)
[2017-05-26 19:27] LABS: TROPONIN T < 0.010 ug/L (0.0-0.011)
[2017-05-26 19:49] VITALS: BP 179/92; PULSE 75; RESP 20; O2SAT 98
--- NOTE | 2017-05-26 20:12 | DRSVH ---
PROCEDURE: X-RAY CHEST ONE VIEW, PORTABLE ([id number]) INDICATIONS: weakness TECHNIQUE: One view of the chest was acquired. COMPARISON: [facility], CR, XR CHEST 1VW (PORTABLE), 05/12/2017, 21:29. FINDINGS: Surgical changes and devices: None. Lungs and pleura: No pleural effusions or pneumothorax. Lungs are clear. Mediastinum: Mediastinal contours appear normal. Heart size is normal. Bones and chest wall: No suspicious bony lesions. Overlying soft tissues appear unremarkable. IMPRESSION: No acute pulmonary process. Dictated by: Sharona Gonzalez M.D. on 05/26/2017 at 20:06 Approved by: Sharona Gonzalez M.D. on 05/26/2017 at 20:10
[2017-05-26 20:37] LABS: APPEARANCE,URINE HAZY (CLEAR,HAZY); COLOR,URINE YELLOW (YELLOW)
[2017-05-26 20:38] LABS: OCCULT BLOOD,URINE TRACE (NEGATIVE); UROBILINOGEN,URINE NORMAL (NORMAL)
[2017-05-26] MEDS ORDERED: Ondansetron 2 mg/mL 2 mL Inj IVPUSH PRN (21:00)
[2017-05-26 21:51] VITALS: BP 168/43; PULSE 82; O2SAT 100
== END 2017-05-26 21:52 | disposition home or self-care (01) ==
LOC: SED 15:07
DX: E86.0 Dehydration (principal); R53.1 Weakness; E11.9 Type 2 diabetes mellitus without complications; I10 Essential (primary) hypertension; K21.9 Gastro-esophageal reflux disease without esophagitis; R42 Dizziness and giddiness; G70.00 Myasthenia gravis without (acute) exacerbation; R11.2 Nausea with vomiting, unspecified; E07.9 Disorder of thyroid, unspecified; Z90.89 Acquired absence of other organs; Z86.14 Personal history of Methicillin resistant Staphylococcus aureus infection; Z87.891 Personal history of nicotine dependence; Z79.52 Long term (current) use of systemic steroids; Z79.84 Long term (current) use of oral hypoglycemic drugs; Z88.0 Allergy status to penicillin; Z88.8 Allergy status to other drugs, medicaments and biological substances
CPT/HCPCS: 36415; 71010; 80053; 81000; 83735; 84484; 85025; 93005; 96361; 96374; 99285; J2405; J7030